=== PATIENT | male | born 1965 | race Caucasian/White ===

== ENCOUNTER 2016-12-02 14:15 | Inpatient (IN) | payer OTHER ==
[~2016-12-02] VITALS: Ht 162.6 cm; Wt 83.9 kg
[2016-12-02] VITALS (13 sets, daily range): BP systolic 117–174; BP diastolic 61–116; PULSE 82–99; RESP 20–27; O2SAT 96–97
[~2016-12-02 14:15] MED LIST: 0.9% Sodium Chloride 1,000 ML ONE; 0.9% Sodium Chloride 250 ML ONE; ASPI81TA3 PO; ATOR80TA77 PO; DOCU-41 PO; FEG324 PO; Heparin 1,000 Unit/mL 10 mL Inj ONE; Heparin 1,000 Units/500 mL NS Premix IV ONE; Heparin 10,000 Unit/1,000 mL NS Premix IV ONE; Heparin 5,000 Units/500 mL NS Premix IV ONE; LISI-571 PO; METO-272 PO; NitroPRUSSIDE 25,000 mCg/mL 2 mL Inj IV ONE; Nitroglycerin 50,000 mcg/250 mL D5W Premix IV ONE; OMEP20CA11 PO
[2016-12-02] MEDS ORDERED: Atropine 1 mg/10 mL (Code) Syringe ONE (14:16)
[2016-12-02] MEDS ORDERED: fentaNYL-PF 50 mCg/mL 2 mL Inj ONE (14:36)
[2016-12-02 14:40] LABS: BASOPHILS % (AUTO) 0.3 % (0-3); EOSINOPHILS % (AUTO) 0.8 % (0-5); MONOCYTES % (AUTO) 7.2 % (4-12); Mean Corpuscular Hemoglobin 28.8 pg (27.0-35.0); NEUTROPHILS % (AUTO) 77.6 % (40-74); Platelet Count 282 bil/L (150-400)
[2016-12-02] MEDS ORDERED: Phenylephrine/NS-PF 100 mCg/mL 5 mL Syringe IVPUSH ONE (14:40)
[2016-12-02 15:17] LABS: Magnesium 1.8 mg/dL (1.6-2.6)
[2016-12-02 15:18] LABS: TROPONIN T < 0.010 ug/L (0.0-0.011)
[2016-12-02] MEDS ORDERED: Nitroglycerin 50,000 mcg/250 mL D5W Premix IV ONE (15:30)
[2016-12-02 15:48] LABS: Creatine Kinase 138 U/L (21-232)
[2016-12-02] MEDS ORDERED: LANS30CA PO (17:52)
[2016-12-02] MEDS ORDERED: HYDR28GE EXT (18:20)
--- NOTE | 2016-12-02 18:24 | NUR ---
Admit nurse note Admission assessment completed. Pt. denies needs at this time aside from hunger. Dinner is ordered. Brother is at bedside and engraver signature in to talk with pt. during my assessment. NKA verified. Med history obtained from medication bottles, which are sent home with brother. He gives history of falls related to CVA and resulting weakness.Pt. oriented to room and call almeida. Report given to Bijal Mendoza.
[2016-12-02] MEDS ORDERED: Nitroglycerin 50 mg/250 mL D5W Premix IV PRN (18:35)
--- NOTE | 2016-12-02 18:55 | NUR ---
Post cath.. Pt received from nitriles lab technician at 1630. Arrived in stable condition and no chest pain or SOB noted. B/P was 150 systolic. NTG resumed from nitriles lab technician and B/P has come down to wnl. Groin site has old blood under drsg but no hematoma noted. Dr Weber here to assess pt.
--- NOTE | 2016-12-02 19:08 | CS94 ---
[address] [address] DIAGNOSTIC CARDIAC CATHETERIZATION PATIENT: GUY CORNEJO : 1965 MR#: [id number] ADMIT: 12/02/2016 JOB ID: [id number] PROCEDURE NOTE -- CARDIAC CATHETERIZATION LABORATORY: SERVICE DATE: November SERGEANT MISSILE CREWMAN: Srinivasan Weber MD PROCEDURES: 1. Coronary angiogram -- emergent. 2. Percutaneous coronary intervention (PCI): a. Distal RCA -- Resolute KAIN 2.5 x 18 mm (occlusion; InStent thrombosis). b. Thrombectomy -- adjunctive thrombectomy. 3. Left heart catheterization (LHC -- pressure measurements LVED; and pullback. CLINICAL DETAILS: This 51-year-old man presented to the emergency department by EMS after about an hour's time in transport from home after he developed severe -- intensity 7 on a scale of 10 -- chest pressure with diaphoresis and mild dyspnea and nausea. The pain was not relieved by morphine. He was hypertensive with systolic blood pressure 188. He has a history of known coronary disease with PCI at [facility] in September 2015. His wallet card indicates stents in the right posterolateral branch, Xience Alpine 2.25 x 23 mm; then Xience Alpine KAIN in distal RCA 2.5 x 33 mm; and Xience Alpine KAIN 2.5 x 23 mm in proximal OM. Plavix was discontinued about a month ago. ECG shows sinus rhythm with marked [address] elevation inferiorly and in the lateral precordial leads as well as confirmatory reciprocal ST depression in lead L1 and aVL; and ST depression in lead V1, V2 with sinus rhythm. PROCEDURAL DETAILS: I met him and evaluated him on arrival in the emergency department. We discussed the recommendation to proceed emergently to coronary angiogram and anticipated PCI for STEMI. We discussed the procedure including possible risks and complications. We discussed bleeding, infection, blood clots; as well as injury to nerve, artery, vein or kidney; and also arrhythmia, drug reaction or others. We discussed treatment as needed including pacemaker, transfusion or surgery. We discussed more serious complications that are possible including heart attack, stroke, cardiac arrest, and emergent surgery including transfer for coronary bypass if needed. After questions and discussions, he signed informed consent to proceed. He was n.p.o. He was brought to the catheterization laboratory where he was prepped and draped sterilely. CORONARY ANGIOGRAM: Arterial access was obtained without difficulty in the right common femoral artery using modified Seldinger technique and fluoroscopic localization over the femoral head to insert a 10 cm 6-Grenadian side-arm sheath in the right common femoral artery. Catheters were advanced and exchanged over a long 0.035 inch J-tipped guidewire. First the left coronary artery was imaged with a 6-Grenadian JL-4 diagnostic catheter. Then, the right coronary artery was engaged with a 6-Grenadian JR-4 guide catheter. LHC: At the end of the procedure, a 6-Grenadian pigtail catheter was advanced across the aortic valve into the left ventricle to measure LVED and pullback. No LV cine don PCI of distal RCA and culprit in-stent thrombosis of the distal RCA: The diagnostic images were reviewed. Decision was made to proceed with emergent intervention of the culprit occlusion in the proximal part of the prior stent in the RCA just after the acute margin. Prior to the procedure, the patient received aspirin 324 mg p.o.; as well as heparin bolus 5000 units; and heparin IV infusion 1000 units/hour; and also Plavix loading dose 300 mg p.o. in the ambulance. For this procedure, he received additional loading dose of Plavix 300 mg p.o. for total loading dose of Plavix 600 mg p.o. Procedural anticoagulation was obtained with bolus IV heparin 8000 units to achieve therapeutic ACT. Aliquots of NTG IC were used during the procedure. Nitroprusside 150 mcg IC was used during the procedure. NTG IV was also used to control his hypertension. The 6-Grenadian JR-[address] was used for the intervention. The occlusion was crossed without difficulty with a BMW wire -- 0.014 inches x 190 cm -- which was placed distally in the RPLB. CARDIAC PREDILATATION: The artery was opened with one inflation of a Trek balloon -- 2.5 x 20 mm -- inflated to 6 atmospheres. The artery was then opened and the initial MISTY 0 flow returned to MISTY-3. Estimated door to balloon time was 48 minutes. STENT: Thrombectomy: In the proximal part of the prior RCA stent, there is a filling defect consistent with thrombus. Initially, there was a cutoff in the small distal portion of RPLB that may represent downstream embolization. The in-stent thrombus was treated with one pass and two aspirations of an Expressway thrombectomy catheter. There was at least one moderate-size piece of red thrombus retrieved. The in-stent filling defect did remain. STENT: The lesion was stented with a Resolute KAIN (drug-eluting stent) -- 2.5 x 18 mm -- deployed in the proximal portion of the previously stented segment. POSTDILATATION: The stent at the site of the thrombus was post dilated with a noncompliant Trek NC balloon -- 2.75 x 12 mm -- deployed at 20 atmospheres. The completion angiogram showed an excellent final angiographic result with MISTY-3 flow resumed; no residual lesion; and no angiographic complication. Flow in the distal RPLB resumed consistent with resolution of the prior cutoff/thrombotic embolus. Procedure without difficulty. The patient tolerated procedure well. No complication. A side-arm sheath angiogram shows adequate access in the right common femoral artery for a closure device. Arterial hemostasis was obtained without difficulty using a 6-Grenadian Perclose suture. After the procedure, there was slow resolution of his chest discomfort and ST elevation. He was transferred ultimately from the Catheterization Laboratory chest-pain free and with much reduced ST-elevation to the CCU for ongoing care. I discussed the procedure findings and recommendations with the patient; with the Cardiology. FINDINGS: 1. LMCA: Intact. The left main coronary artery is short and there is pressure damping on engaging the ostium but there is no lesion. 2. LAD: Intact. The left anterior descending coronary artery is a moderate-sized vessel which appears to taper prior to the apex; but there is no discrete lesion seen. The vessel appears to taper but a distal occlusion in the small portion of the LAD is not excluded. There is one moderate-sized early diagonal. There is moderate atherosclerotic plaquing including 50% to 60% narrowing in the early mid LAD just after the small first septal pony edger. 3. CARDIAC LCX: Intact. The left circumflex coronary artery is a large vessel with a very large high first OM. The prior stent is faintly seen in the proximal part of the large first OM. It is intact. 4. RCA: Occluded distally in the proximal part of the prior stent just after RV branch and just after acute margin. The RCA is dominant. PDA is small. PLB is moderate-sized. Both moderate-sized PDA and PLB reach the apex consistent with the small territory of the LAD. At the end of the procedure, there is a visible myocardial blush. 5. LHC: LVED 34; and no systolic gradient on pullback across the aortic valve despite report of moderate aortic stenosis on prior echo. CONCLUSIONS: 1. PCI -- Resolute KAIN 2.5 x 15 mm; post dilated to 2.75 mm. 2. ACS (acute coronary syndrome) -- STEMI; acute inferior myocardial infarction (infarct related artery is RCA). 3. CAD (coronary artery disease) -- two-vessel CAD including in-stent occlusion of the previously revascularized distal RCA; and intact prior stent and a large OM-1. 4. Severe hypertension; and markedly elevated LVED. RECOMMENDATIONS: 1. ECASA -- indefinitely. 2. Plavix -- plan one year if well tolerated including ongoing Cardiology followup. I discussed with the patient the critical importance of mandatory Plavix, and not to stop for any reason without immediate Cardiology consultation. He had already been started on Plavix in the field; but may consider prasugrel. Also to consider lifetime Plavix if well tolerated. ECHO Monitor for heart failure. OMT -- guideline directed optimal medical therapy for coronary disease and risk factors including aspirin, Plavix, high-intensity statin, beta-marizol and SARAH inhibitor.
--- NOTE | 2016-12-02 19:17 | HP ---
[address] [address] HISTORY AND PHYSICAL PATIENT: GUY CORNEJO : 1965 MR#: [id number] ADMIT: 12/02/2016 JOB ID: [id number] CARDIOLOGY ADMISSION HISTORY AND PHYSICAL: INITIAL CRITICAL CARE EVALUATION (EMERGENCY DEPARTMENT): DATE OF EVALUATION: , December 02, 2016. ADMITTING PHYSICIAN: Cardiology-Srinivasan Weber MD. PROBLEMS: 1. Acute coronary syndrome. (ACS): a. Chest pain--severe unrelieved chest pressure; ischemic time probably 1-2 hours. 2. STEMI--acute inferior myocardial infarction. 3. Coronary artery disease (CAD): a. PCI--September 2015 at [facility] in [place], [place]; Xience Alpine KAIN (drug-eluting stent) 2.5 x 33 mm in distal RCA; and Xience Alpine KAIN 2.25 x 23 mm in RPLB; and Xience Alpine KAIN 2.5 x 23 mm in proximal OM-1. b. Echocardiogram--July 23, 2016 shows ejection fraction 65% to 70% with no wall motion abnormalities; and "moderate" aortic stenosis with a peak AVG 2.74 (mean AVG 16 and SHELIA 1.2). CORONARY ARTERY DISEASE RISK FACTORS: 1. No history of diabetes. 2. History of hypertension--history of severe hypertension. 3. Hyperlipidemia--status unknown but on chronic statin. 4. Cigarettes--cigarette smoker; discontinued in 2013 after CVA. FAMILY HISTORY: Family history of premature coronary disease (his father had onset coronary disease in his 4th decade but lived to the 8th decade). 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 CHIEF COMPLAINT: 1. Chest pain. 2. Abnormal ECG-inferior STEMI. HISTORY OF PRESENT ILLNESS: ED presentation: I was called by the emergency department physician for "industrial laborer activation" and was present when this 51-year-old man presented to the emergency department by EMS transport from his home after about 1 hour of transport with ischemic time probably 1-2 hours. He had ongoing severe--intensity 01/31--retrosternal chest heaviness that radiated "all over" and associated with intense diaphoresis initially and some subjective dyspnea. He has otherwise been well after his stent procedure in September 2015. He has been followed in Cardiology Clinic including by Dr. Iverson and has had no other symptoms or cardiac procedures. In the ambulance, he received ASA 324 mg p.o.; as well as heparin loading bolus 5000 units; a heparin IV infusion at 1000 units/hour. He also received a loading dose of 300 mg Plavix p.o. He was hypertensive with initial systolic blood pressure 188/100-110 diastolic. On arrival, he had ongoing severe chest pain and hypertension but was otherwise stable with sinus rhythm. ECG showed overt marked inferior ST elevation of 5-[address] elevation greater in lead. CARDIAC HISTORY: He had one prior cardiac event in September 2015, the details of which are not initially known. He had two-vessel PCI, as noted above. He stopped Plavix about a month ago. Otherwise, he does not have other cardiac symptoms including symptoms of heart failure such as chronic exertional dyspnea or nocturnal dyspnea or edema. He has no history of arrhythmia or current symptoms of arrhythmia, including tachy palpitation, presyncope or syncope. Regarding other underlying vascular disease, he has no claudication; and no current symptoms of TIA; but he does have history of CVA with left hemiparesis in 2013. Regarding possible dual antiplatelet therapy, he has no current bleeding symptoms, no anticipated surgery, and he states reliable to take mandatory medicines if needed. ALLERGIES: No known drug allergies. I elicit no history of allergy to medical contrast; or to seafood, fish, iodine or shellfish. MEDICATIONS: His initial medicines are not clear, but he brings a bag with multiple medication bottles includin. Aspirin. 2. Lipitor. 3. Lisinopril. 4. Metoprolol. PAST MEDICAL HISTORY: As above; but otherwise he is generally healthy without other major underlying medical illnesses noted. REVIEW OF SYSTEMS: I questioned him in the emergent setting regarding a 13 point review of systems which is unremarkable, noncontributory or negative except as noted including: No history of thyroid disorder. No history of lung disorder including asthma, wheezing or known COPD. History of indigestion; but otherwise no history of underlying GI disorder including ulcer, hepatitis or jaundice. PERSONAL/SOCIAL HISTORY: Cigarettes--he stopped in 2013 after CVA. Alcohol--he drinks no alcohol. Work--he works with [employer]. Family--he has a brother locally; lives alone. No other drug use. FAMILY HISTORY: Strong family history of premature coronary artery disease in his father, as noted. PHYSICAL EXAMINATION: GENERAL APPEARANCE: Middle-aged man who is moderately uncomfortable with acute chest pain. He is not overtly dyspneic lying flat. VITAL SIGNS: Blood pressure initially 188/110 with a heart rate regular and sinus rhythm on telemetry. Respiratory rate 20 and without apparent dyspnea. SpO2 96% on supplemental oxygen nasal cannula. The weight is 180 pounds. NEUROLOGIC: Mental status: Very brief examination reveals no acute overt focal neurologic defects noted. He is alert, oriented, appropriate and conversant. HEENT: PERRL, conjunctivae pink. Sclerae not icteric. Mouth and mucous membranes intact with Mallampati 4. NECK: Carotid upstroke difficult to feel, but unremarkable without bruit bilaterally. Jugular venous pressure unremarkable examined supine. No palpable thyromegaly. No palpable cervical lymphadenopathy. LUNGS: Diffusely diminished breath sounds bilaterally. Examined supine; but otherwise unremarkable clear to auscultation bilaterally. CARDIAC: No chest wall tenderness. Cardiac examination notable for regular rhythm, S4, and no loud murmur heard. ABDOMEN: Obese but otherwise unremarkable without tenderness, mass, hepatosplenomegaly, bruit of abdominal aortic aneurysm. EXTREMITIES: No edema. Pedal pulses intact bilaterally including at the right dorsalis pedis and posterior tibial. DIAGNOSTIC STUDIES: ELECTROCARDIOGRAM: I reviewed the multiple prehospital ECGs and the ECG initially in the ED, all of which show sinus rhythm with marked inferior ST elevation with more ST elevation in lead III than lead II as well as lateral precordial ST elevations, and right precordial ST depression. The overall impression is RCA occlusion more likely than LCX occlusion. CHEST X-RAY: Chest x-ray deferred on presentation. I reviewed a prior chest x-ray from an emergency department visit in June 2016 which showed cardiomegaly and some heart failure. LABORATORY: Laboratory initially not available. When available labs include: CBC includes WBC 17,300 with hemoglobin 15.2, hematocrit 43.3, and platelet count 262,000. Chemistry includes potassium 3.7, creatinine 1.08, estimated GFR 77, glucose 104, and magnesium 1.8. LFTs unremarkable. Initial cardiac markers include CK total 138, CK-MB 3.9, with troponin not elevated at less than 0.01. ASSESSMENT: I discussed my findings, impressions and management considerations with the patient and with the ED staff and with Cardiology includin. Acute coronary syndrome with inferior ST elevation myocardial infarction: He presents with ongoing ischemic chest pain and marked ST elevation on ECG in the setting of severe hypertension but otherwise clinically stable. His prior cardiac history is not entirely available but includes a single prior cardiac event in September 2015 with two-vessel PCI of obtuse marginal and right coronary artery. I discussed with him the recommendation to proceed emergently to coronary angiogram and anticipated PCI to define coronary artery and guide management options including medical therapy, anticipated PCI or coronary bypass surgery if needed. 2. Hypertension: He has a history suggestive of severe hypertension; and this may be driving his pain; or may be secondary to hypertension. PLAN: 1. Coronary angiogram--emergent. 2. Echocardiogram. 3. Admit to CCU. 4. Chest x-ray. 5. OMT-optimal guideline-directed medical therapy for coronary disease and underlying risk factors.
--- NOTE | 2016-12-02 19:39 | DRSVH ---
PROCEDURE: X-RAY CHEST ONE VIEW, PORTABLE ([id number]) INDICATIONS: 51 year-old male with chest pain. TECHNIQUE: One view of the chest was acquired. COMPARISON: [facility], CR, XR CHEST 1VW (PORTABLE), 07/20/2016, 1:27. FINDINGS: Surgical changes and devices: None. Lungs and pleura: No pleural effusions or pneumothorax. Lungs are clear. Mediastinum: Mediastinal contours appear normal. Heart size is normal. Bones and chest wall: No suspicious bony lesions. Overlying soft tissues appear unremarkable. IMPRESSION: No acute cardiopulmonary disease. Dictated by: Jose Peterson M.D. on 12/02/2016 at 19:37 Approved by: Jose Peterson M.D. on 12/02/2016 at 19:37
[2016-12-02] MEDS ORDERED: 0.9% Sodium Chloride 250 ML IV PRN (20:02)
[2016-12-02] MEDS ORDERED: 0.9% Sodium Chloride 1,000 ML IV PRN ×2 (20:02→22:25)
[2016-12-02] MEDS ORDERED: Atropine 1 mg/10 mL (Code) Syringe IVPUSH PRN ×2 (20:05→21:15)
[2016-12-02] MEDS ORDERED: Ondansetron 2 mg/mL 2 mL Inj IVPUSH PRN ×2 (20:05→21:15)
[2016-12-02] MEDS ORDERED: MeTOProlol XL 25 mg ER24 Tablet PO SCH (21:00)
[2016-12-02] MEDS ORDERED: 0.9% Sodium Chloride 400 ML (4 HRS) IV ONE (21:15)
[2016-12-02] MEDS ORDERED: Sodium Chloride LOK Flush 10 mL Syringe IVFLUSH PRN (21:15)
[2016-12-02] MEDS ORDERED: 0.9% Sodium Chloride 250 ML BOLUS IV PRN (21:15)
[2016-12-03] VITALS (11 sets, daily range): BP systolic 107–146; BP diastolic 66–99; PULSE 69–102; RESP 14–24; O2SAT 93–97
[2016-12-03 03:30] LABS: Mean Corpuscular Hemoglobin 28.6 pg (27.0-35.0)
[2016-12-03 04:36] LABS: TROPONIN T 12.54 ug/L (0.0-0.011)
--- NOTE | 2016-12-03 04:49 | NUR ---
P: keep SBP < 140 I: nitroglycerine drip, HS toprol E: Nitroglycerine drip from off to 15mcg to keep SBP < 140. Current rate at 10mcg. SBP teens to 160, DBP 60-90s. Tele SR/ST w/ runs of VT. Decrease runs of VT in AM hours. R groin tender, soft w/ bruising and swelling. R DP intact. A/O. c/o nausea after eating dinner w/ cucumbers ("cucumbers and crab cause me nausea"). Zofran given, effective. c/o mid chest "soreness", 11/01. "It is my stents". Tylenol given, effective. Voiding patrick urine via urinal. Resting quietly in AM hours. Dr Weber present on floor approx 2300 and updated on runs of VT and SBP > 140.
--- NOTE | 2016-12-03 10:44 | DRSVH ---
[facility] [address] [place] [address] Echocardiogram Report Name: GUY CORNEJO Javier e: 12/03/2016 Height: 64 in Hospital Exam Location: [facility] Weight: 182 lb Gender: Male BSA: 1.9 m2 : 1965 Age: 51 yrs BP: 132/82 mmHg Reason For Study: CORONARY THROMBECTOMY, STENT Ordering Physician: Performed By: Ashlyn Carlos Referring Physician: Marjan Iverson Interpretation Summary Left ventricular wall thickness is at the upper limits of normal. There is inferior wall akinesis. There is posterolateral wall hypokinesis. Left ventricular ejection fraction is estimated to be 45 +/- 5%. The aortic valve is mildly calcified. The calculated aortic valve area is 1.3 cm2. The right ventricular systolic pressure is estimated at 30 mmHg assuming a right atrial pressure of 3 mm Hg. Compared to the prior echo study, there has been no change in the severity of aortic stenosis. Procedure: A two-dimensional transthoracic echocardiogram with color flow and Doppler was performed. The apical views were difficult to obtain and are suboptimal in quality. A contrast injection of Definity was performed to improve assessment of LV function. Contrast was injected into an intravenous site in the left arm. A total of 6 cc of contrast was given. Comparison is made with the echocardiogram of 07-23-2016. The patient was in sinus during the exam. The patient did well with the Definity Contrast. Left Ventricle: The left ventricle is normal in size. Left ventricular wall thickness is at the upper limits of normal. The LVOT diameter is 2.0 cm. Left ventricular ejection fraction is estimated to be 45 +/- 5%. There is inferior wall akinesis. There is posterolateral wall hypokinesis. Spectral Doppler of the mitral valve shows a normal E/A wave ratio. Right Ventricle: The right ventricle grossly appears normal in size with probable normal systolic function. Atria: Both atria are normal in size. There is no Doppler evidence for an atrial septal defect. Mitral Valve: The mitral valve leaflets appear normal. There is no evidence of stenosis, fluttering, or prolapse. There is mild mitral annular calcification. There is trace mitral regurgitation. Aortic Valve: The aortic valve is not well visualized. The aortic valve is mildly calcified. The calculated aortic valve area is 1.3 cm2. The peak aortic velocity is 2.9 m/sec. The aortic valve mean gradient is 18 mmHg. The peak aortic velocity on the previous exam was 2.7 m/sec. Compared to the prior echo study, there has been no change in the severity of aortic stenosis. There is trace aortic regurgitation. Tricuspid Valve: The tricuspid valve leaflets are thin and pliable. There is mild tricuspid regurgitation. The right ventricular systolic pressure is estimated at 30 mmHg assuming a right atrial pressure of 3 mm Hg. Pulmonic Valve: The pulmonic valve is not well seen, but is grossly normal. There is no pulmonic valvular regurgitation. Great Vessels: The aortic root is normal size. The dimensions of the ascending aorta are normal. The pulmonary artery is normal size. The IVC is of normal diameter and collapses greater than 50% with a sniff. This suggests a low right atrial pressure of 3 mm Hg. Pericardium/ Pleura There is no pericardial effusion. There is no pleural effusion. MMode/2D Measurements & Calculations LVIDd: 4.6 cm LA dimension: 4.1 cm RA long axis: 4.3 cm LVOT diam LVIDs: 3.4 cm FS: 27.3 % LA A2 area: 18.2 cm RA area: 13.2 cm AoV Opening EPSS: 0.45 cm LA A4 area: 21.9 cm RA vol: 34.3 ml IVSd: 1.0 cm LA length (vol): 5.4 cm RA : 18.3 ml/m2 Ao root diam LVPWd: 1.1 cm LA vol: 63.1 ml asc Aorta Diam LA vol index: 33.6 ml/m2 EDV(MOD-sp2) LV reddy. diameter/BSA LV sys. diameter/BSA (cm/m^2): 2.5 (cm/m^2): 1.8 ESV(MOD-sp2) EF(MOD-sp2) Doppler Measurements & Calculations Ao V2 max MV E max efrain MV E/A: 1.1 TR max efrain : 291.6 cm/sec : 80.4 cm/sec Med Peak E' Efrain : 257.9 cm/sec Ao max PG MV A max efrain TR max PG : 34.0 mmHg : 71.7 cm/sec E/E' med: 14.2 : 26.6 mmHg Ao mean PG MV P1/2t: 45.0 msec Lat Peak E' Efrain PA V2 max : 17.5 mmHg : 113.6 cm/sec LVOT Max Efrain E/E' lat: 10.2 PA mean PG : 116.2 cm/sec E/e' average: 12.2 Pulm A Revs Dur PA Accel Time SHELIA(I,D): 1.3 cm : 0.11 sec sev ratio MV A dur: 0.11 sec MV dec time MV P1/2t max efrain Ao V2 mean LV V1 max PG : 0.15 sec : 197.3 cm/sec MVA(P1/2t): 4.9 cm2 Ao V2 VTI: 54.7 cm LV V1 VTI SHELIA(V,D): 1.2 cm2 : 22.7 cm PA V2 mean SHELIA indexed to BSA Pulm A Revs Dur - MV : 80.1 cm/sec (cm^2/m^2): 0.68 A Dur: 0.00 msec Electronically signed by: Jesus M.D. [place] on Reading Physician:12/03/2016 10:43 AM
--- NOTE | 2016-12-03 13:31 | NUR ---
spiritual care: pt request pt reflected on recent medical events including past heart attack and stroke. Pt and brother at bedside reflected on family, of sister and brother in law, parents and family's coping with sudden or unexpected deaths. pt described gratefulness, attention to each moment and being glad for small things as his coping as well as his brother's emotional support. Pt calm, smiled often, used positive framing of the care he's received in his reflections.
--- NOTE | 2016-12-03 14:12 | PROG NOTE ---
[address] [address] PROGRESS NOTE PATIENT: GUY CORNEJO : 1965 MR#: [id number] ADMIT: 12/02/2016 JOB ID: [id number] CARDIOLOGY PROGRESS NOTE--FOLLOW UP INPATIENT EVALUATION: DATE: Saturday, December 03, 2016 PHYSICIAN: Cardiology--Srinivasan Weber M.D. PROBLEMS: 1. Acute coronary syndrome: a. STEMI--acute inferior myocardial infarction. b. PCI--KAIN of in-stent occlusion of the mid RCA stent. c. CAD--two vessel including RCA and also prior stent in the OM-1. 2. Hypertension. HOSPITAL DAY-TWO: I saw the patient and his brother who was in the room on Cardiology rounds today, Saturday, December 03, 2016 in the CCU. He was admitted emergently yesterday with chest pain and inferior ST elevation on ECG. He had emergent catheterization and revascularization of culprit occlusion of in-stent stenosis in the previously stented segment of the mid right coronary artery; and a prior stent in OM1 was intact. Since the catheterization procedure, he has been stable improved and doing well. He has had no chest discomfort; good urine output; and no shortness of breath despite my impression of some pulmonary venous engorgement on the chest x-ray. He has continued to have labile blood pressure sometimes hypertensive and still on 20 mcg NTG IV. He has not been out of bed yet. He has a headache from the NTG. His leg was intact yesterday evening but now has some modest ecchymosis. Overall he is doing very well. MEDICATIONS: His home medications became clarified yesterday evening includin. ASA 81 mg daily. 2. Lipitor 80 mg daily--no myalgias. 3. Docusate 300 mg daily. 4. Ferrous gluconate 324 mg daily--she reports "anemia" but not sure of the site. 5. Lansoprazole 15 mg daily. 6. Lisinopril 5 mg b.i.d.--recently increased to b.i.d. to control his blood pressure. 7. Metoprolol succinate ER 50 mg q.h.s. OBJECTIVE: EXAMINATION: General appearance: He is in good spirits and doing very well and has had no further chest discomfort. Vital signs: Systolic blood pressures have ranged 125-160 on the NTG IV. Telemetry has showed a handful of runs of nonsustained VT including up to 13-20 beat runs asymptomatic. Heart and lungs: Intact. Extremities: The calf site has modest ecchymosis without hematoma, pulsatile mass or bruit and vigorous pulses and perfusion in the right foot. DIAGNOSTIC STUDIES: ECG: The ECG after the cath and again this morning shows resolution of the acute ST elevation and reciprocal ST depression. There was a subtle inferior coving that remains. There are now inferior Q-waves (previously only modest Q-waves are present noting his history of prior inferior VT in September 2015 in [place]). CHEST X-RAY: After the procedure yesterday he had a chest x-ray that was unchanged from previously but shows some cardiomegaly and appears to show some pulmonary venous hypertension. LABORATORY: Note today he has had good urine output and creatinine with hydration has fallen to 0.74. Magnesium 1.8, now rechecked 1.9. Potassium 4.3. Cardiac markers are consistent with a moderate-sized infarct noting his ischemic time of about 2 hours when he presented including CK total 2037. ECHOCARDIOGRAM: The report of the echo done today is consistent with moderate size inferior myocardial infarction with ejection fraction now 40%-50% with inferior and inferolateral wall motion defect noted--prior recent echo suggested EF more than 60% with no wall motion defects. The echo continues to show some degree of aortic stenosis even though we measured no aortic valve gradient during the procedure. ASSESSMENT: I discussed the findings, impressions and management considerations with him and his brother; and with Cardiology including: ACS with inferior VT due to mid RCA in-stent thrombosis with occlusion: He has been revascularized and doing well. He has had a modest size inferior infarct. RECOMMENDATIONS/PLAN: 1. Moved to PCU status. 2. Plan to discontinue NTG IV; and adjust for an oral regimen for his hypertension. 3. Re-ambulate with the nurse once off NTG IV. 4. Regarding hypertension: Reinstitute lisinopril 5 mg b.i.d.; and maintain metoprolol succinate 50 mg daily or increase. Also consider Norvasc. 5. Post catheterization planning: We had a long discussion regarding his post catheterization course including not to lift over 10 pounds for a week after the catheterization; and to resume activities according to an activity prescription for moderate common sense symptom limited return to normal activities as tolerated; and PCP followup in a few days to a week; and cardiology office followup within 7-10 days (Dr. Iverson's office has already contacted him); and we rediscussed the critical importance of Plavix. 6. Consider change to Ticagrelor. 7. Continue to monitor telemetry regarding nonsustained V tach which seems consistent with his early post infarct course.
--- NOTE | 2016-12-03 14:51 | NUR ---
Social Work: Screen D: Per EMR review pt is a 51 year old male admitted for STEMI. Pt is [facility] with no supplement. Pocket Cutter is Cecily Martinez MD. NOK is Joshua Bray, Brother. Advanced directives completed and requested by admit RN. Readmit score is low, 2/8. Pt lives in [place] and is I at baseline. Pt remains in CCU after emergent cardiac cath. Cardiology is leading pt's case. A: Pt who is I at baseline. P: Anticipate pt to discharge home via POV once medically stable; PUBLIC HEALTH STAFF NURSE to continue to follow pt's clinical course and address discharge needs as they emerge. CLARK Ledezma
--- NOTE | 2016-12-03 16:17 | NUR ---
Nitro gtt/mobilization Cardiac: Pt denies CP, Tele: SR 80s, frequent PVCs including runs of no more than 20. Nitro Gtt running most of shift to keep SBP <140, 10mcg/min all night with SPB in 130s, titrated up for increased BP when pt awake. Lisinopril Po given at 13:30, nitro gtt titrated down and DC'd, pt downgraded to PCC. Pt tolerated lisinopril well, Metoprolol XL HS dose increased from 25 to 50. Pt placed on portable tele box, up in chair for meals and ambulating in room with plan to ambulate in [place] before end of shift. Resp: Pt denies SOB, SPO2 96% on RA. GI/: Pt denies n/v/d. Neuro: A&Ox3, L hand and L foot numb s/p past CVA december 2013, uses cane and FWW
[2016-12-03] MEDS ORDERED: Diltiazem 125 mg/125 mL D5W IV SCH ×2 (19:20)
[2016-12-03] MEDS: MeTOProlol XL 50 mg ER24 Tablet PO SCH (21:41)
[2016-12-04] VITALS (8 sets, daily range): BP systolic 90–119; BP diastolic 58–75; PULSE 72–98; RESP 16–21; O2SAT 94–99
--- NOTE | 2016-12-04 01:35 | NUR ---
Transfer PCC pt from room 2013 to 2026. Report given to Anahy REILLY. Pt A/O. Start of shift pt in Afib, RVR and order to start diltiazem drip. Pt converting back to SR w/ frequent PACs before diltiazem drip starting. c/o mild dyspnea w/ transfer from chair back to bed when HR in the 140-180s. Otherwise no symptoms. Tele continues in SR w/ less frequent PACS. BP currently stable low after receiving lopressor at the end of day shift and lisinopril given at HS. Denies pain, N/V, dyspnea. Tolerating diet. Voiding via urinal. R groin site stable.
--- NOTE | 2016-12-04 01:40 | NUR ---
Admission Pt arrived in CCU bed. Transferred from CCU 2013. Pt alert and orientated. Full assessment completed. Voiced no concerns.
--- NOTE | 2016-12-04 05:43 | PCM.CHPMED ---
Subjective Date of Service: December 04, 2016 Provider requesting consult: Srinivasan Weber MD Primary Physician: Admitting Physician: Srinivasan Weber MD Primary Care Physician: Cecily Martinez MD Attending Physician: Srinivasan Weber MD Chief Complaint: Chief Complaint: chest pain History of Present Illness: 51yoM with past medical history of HTN, HLD, CAD s/p stent placement admitted with STEMI s/p cath. Request by Dr. Weber of cardiology for evaluation and management of atrial fibrillation with RVR. Patient was at home prior to admission when he began having 7/10 chest discomfort characterized as heaviness that was diffuse radiating throughout the chest associated with diaphoresis and dyspnea. EMS was called and patient transported to [facility] ED where terrazzo laborer activation was completed. EKG with inferior ST elevation. In terrazzo laborer prior stent was found to have in stent thrombosis of the RCA. This was revascularized and patient was transferred to the CCU for close monitoring. The evening of 12/03 at approximately 7pm Mr. Bray went into atrial fibrillation with RVR. He has been recently taken off a nitro gtt which was managing HTN. His evening dose of metoprolol was given and he spontaneously converted to sinus rhythm. Review of Systems: complete review of systems obtained. positive as per hpi otherwise negative PMH Past Medical History Acute coronary syndrome. (ACS)STEMI--acute inferior myocardial infarction. CAD, PCI Prov aroldo 2015 HTN HLD Past tobacco dependence CVA, residual left hemiparesis Bedside Blood Glucose: 134 Home Medications Current inpatient medications NS prn hypotension Nitro gtt on sep Acetaminophen ASA Atorvastatin Plavix Lisinopril Metoprolol Morphine Nitro SL Ondansetron Allergies: Coded Allergies: crab (Verified Adverse Reaction, Intermediate, N/V, 12/02/16) cucumber (Verified Adverse Reaction, Intermediate, N/V, 12/02/16) Family History Family History Family history of premature coronary disease (his father had onset coronary disease in his 4th decade but lived to the 8th decade). Social History Hx Alcohol Use: NoHx Substance Use: No Smoking Status: Former Smoker Exam Vital Signs Vital Sign - Last Date Time Temp Pulse Resp B/P Pulse Ox O2 Delivery O2 Flow Rate FiO2 12/04/16 03:10 37.4 88 20 110/62 95 Room Air 12/02/16 14:16 2 Intake and Output 12/03/16 12/03/16 12/04/16 Cumulative From/Thru 15:00 23:00 07:00 12/02/16 14:16 - 12/04/16 03:10 Intake Total 1750 ml 2873 ml Output Total 875 ml Balance 1750 ml 1998 ml Intake Oral 1600 ml 2200 ml IV Total 150 ml 673 ml Output Urine Total 875 ml # Voids 4 4 # Bowel Movements 1 0 1 Additional Information: General: Alert, Oriented X3, Cooperative, No acute Distress. Eyes: PERRLA, Scleral Anicteric Mouth: Mouth Normal, Mucous Membranes Moist/[place] Neck: Supple, no Thyromegaly, trachea central. Chest & Lungs: CTA bilateral with no rhonchi wheezes or rales Cardiovascular: Normal S1, Normal S2, No Murmurs/Rubs/Gallops, Regular Rate/ Rhythm, (no JVD, no peripheral edema) Pulses: Radial (present and equal), Dorsalis Pedi (present and equal) Abdomen: Soft, non-tender, obese, Normoactive bowel tones. Musculoskeletal: Unremarkable. Normal range of motion, no swollen or erythematous joints Extremities: No edema, no cyanosis, no clubbing. Skin: No rashes. Warm and dry, no erythematous areas Neurological: Grossly neurologically intact, Normal Speech, Sensation Intact Lymphatic: Lymph nodes Cervical and Axillary not palpable. Lab and Diagnostics Result Diagram: 12/03/1631412/03/16314 Assessment & Plan Assessment 51yoM with past medical history of HTN, HLD, CAD s/p stent placement admitted with STEMI s/p cath. Atrial fibrillation with RVR, acute, not POA -patient when into afib with RVR following cath but spontaneously converted to sinus with metoprolol -if converts back into atrial fibrillation with RVR and BP is stable consideration will be given to starting dilt bolus and gtt -continue metoprolol as per cardiology STEMI, acute, POA -s/p cath with in stent thrombosis found -management as per cardiology HTN, chronic, POA - management as per cardiology HLD, chronic, POA - continue statin Problems: Pain Evaluation: Adequate Pain Control GI Prophylaxis: Not indicated VTE Prophylaxis: Other (as per cardiology) Resuscitation Status: CPR: Attempt Resuscitation Mellissa Joseph DO December 04, 2016 05:43
--- NOTE | 2016-12-04 18:30 | NUR ---
Mobilization/BP Cardiac: Pt denies CP, Tele: SR 80s.Denies CP. BP much lower than previous shift. SBP 100 and 119 this AM. Lisinopril held for a while until SBP rebounded to 121, and after discussion with Dr arnold. SBP back down to 99 at 1600. Pt asymptomatic. Resp: Pt denies SOB, SPO2 99% on RA. GI/: Pt denies n/v/d. Neuro: A&Ox3, L hand and L foot numb s/p past CVA december 2013, uses cane and FWW. Ambulated with pt in hallway. Pt declined need for FWW and was able to ambulate independently with a steady but slow gait. Pt denied SOB or CP. Pt was instructed that he could walk any time he wanted, but it had to either be with staff or with a walker.
[2016-12-04] MEDS: MeTOProlol XL 50 mg ER24 Tablet PO SCH (20:44)
--- NOTE | 2016-12-04 20:44 | PCM.PNMED ---
Subjective Date of Service December 04, 2016 Subjective 51yoM with past medical history of HTN, HLD, CAD s/p stent placement admitted with STEMI s/p cath. Request by Dr. Weber of cardiology for evaluation and management of other medical problems. Patient was at home prior to admission when he began having 7/10 chest discomfort characterized as heaviness that was diffuse radiating throughout the chest associated with diaphoresis and dyspnea. EMS was called and patient transported to [facility] ED where oil field laborer activation was completed. EKG with inferior ST elevation. In oil field laborer prior stent was found to have in stent thrombosis of the RCA. This was revascularized and patient was transferred to the CCU for close monitoring. The evening of 12/03 at approximately 7pm Mr. Bray went into atrial fibrillation with RVR. Patient was seen and examined. Labs, tests results, home medications, inpatient medications, possible side effects were reviewed in details with the patient. All questions answered. For detailed plan please see consult note dictated by hospitalist today. Also see residential field manager progress note. Today patient feels better. His heart rate is under control. Patient has history of stroke, hypertension. He is on aspirin and Plavix. He is at high risk of another stroke. I discussed with the patient anticoagulation therapy with old and new medications for stroke prevention. He would like to discuss it with his residential field manager first. In the meantime we will continue with aspirin and Plavix. Patient states that he develops bruising very easily when bumps into something or cut himself. Exam Vital Signs Vital Sign - Last Date Time Temp Pulse Resp B/P Pulse Ox O2 Delivery O2 Flow Rate FiO2 12/04/16 15:45 37.1 78 16 98/64 98 Room Air 12/02/16 14:16 2 Intake and Output 12/03/16 12/03/16 12/04/16 Cumulative From/Thru 15:00 23:00 07:00 12/02/16 14:16 - 12/04/16 05:51 Intake Total 1750 ml 300 ml 3173 ml Output Total 725 ml 1600 ml Balance 1750 ml -425 ml 1573 ml Intake Oral 1600 ml 300 ml 2500 ml IV Total 150 ml 673 ml Output Urine Total 725 ml 1600 ml # Voids 4 4 # Bowel Movements 1 0 1 Exam PHYSICAL EXAM: GENERAL: Alert, not in distress, cooperative HEAD: atraumatic, normocephalic, no bruises. EYES: [place], EOMI, anicteric, able to fully open and close eyelids SKIN: Skin color normal, turgor normal. No visible rashes or lesions. EAR, NOSE, MOUTH, THROAT: Lips, oral mucosa, tongue gums, oropharynx are moist , pink, no lesions. Ears normal appearance, no lesions. NECK: no jugulovenous distention, no carotid bruits, carotid pulse normal contour, No carotid bruit, supple, no enlarged lymph nodes appreciated; ROM normal. RESPIRATORY: Lungs clear to auscultation. Good diaphragmatic excursion. Normal percussion sound. CARDIAC: normal S1 and S2; no rubs, murmurs, or gallops; regular rate and rhythm ABDOMEN: Abdomen soft, non-tender. BS normal. No masses or organomegaly. MUSCULOSKELETAL: ROM full, muscles are not tender EXTREMITIES: no pitting edema in LE, no deformities, clubbing or skin discoloration. NEURO: Alert, oriented X 3, Sensation grossly intact., Cranial nerves II-XII intact, motor function R<L PULSES: 2+ radial, 2+ dorsalis pedis, 2+ carotid REVIEW OF SYSTEMS: GENERAL: no malaise, no fevers., SEE HPI HEENT: Negative for frequent or significant headaches, No changes in hearing or vision, no nose bleeds or other nasal problems NECK: Negative for lumps, goiter, pain and significant neck swelling All other reviewed and negative other than HPI. IVs and Medications Medications Reviewed: Medications were reviewed in detail Lab and Diagnostics Result Diagram: 12/03/16 0315 12/04/16 0440 Assessment & Plan GI Prophylaxis: Not indicated VTE Prophylaxis: Other (as per cardiology) Resuscitation Status: CPR: Attempt Resuscitation Guero Machuca MD December 04, 2016 16:55
[2016-12-05] VITALS (10 sets, daily range): BP systolic 86–123; BP diastolic 57–75; PULSE 68–103; RESP 15–18; O2SAT 95–98
--- NOTE | 2016-12-05 01:42 | PROG NOTE ---
[address] [address] PROGRESS NOTE PATIENT: GUY CORNEJO : 1965 MR#: [id number] ADMIT: 12/02/2016 JOB ID: [id number] CARDIOLOGY PROGRESS NOTE-INPATIENT EVALUATION: DATE: 12/04/2016 PHYSICIAN: Cardiology--Srinivasan Weber MD. PROBLEMS: 1. Acute coronary syndrome with acute inferior STEMI; and PCI of mid RCA. 2. Atrial fibrillation--transient, asymptomatic, with spontaneous resolution. HOSPITAL DAY THREE: I saw this 51-year-old man on Cardiology rounds today, Tuesday, December 04, 2016, in his room on the PCU unit. He was admitted now almost two days ago with severe chest discomfort, dramatic inferior ST elevation and occluded RCA which was revascularized. He has done well afterwards, although yesterday afternoon--now almost 24 hours ago--he had an episode of atrial fibrillation with very rapid RVR and heart rates 170 BPM. He was surprisingly completely asymptomatic and unaware of any symptoms or palpitation. The rhythm resolved spontaneously shortly after his evening dose of metoprolol. He is not known to have any other prior atrial fibrillation. Otherwise, he has resumed ambulation which means walking with a cane or front wheel walker because of his prior stroke and left-sided hemiparesis. Overall, he is in good spirits and doing very well. I reviewed his medications with him. OBJECTIVE: Vital signs are stable. Laboratories are intact including creatinine after contrast. I reviewed his ECG during the episode of atrial fibrillation yesterday. There was recurrent ST elevation which we attributed to rate related causes inasmuch as there did not appear to be any ischemia or chest pain present. The ECG today shows substantial resolution of the ST elevation but there is some residual ST elevation and now T-wave inversions inferolaterally consistent with evolutionary changes of his AZ, but also raises the question of developing LV aneurysm. ASSESSMENT: Acute coronary syndrome (ACS) with inferior ST-elevation myocardial infarction (STEMI) and a transient episode of asymptomatic spontaneously resolved atrial fibrillation yesterday: I discussed the findings, impressions and management considerations with him (no family present). He is doing very well and anticipate he will be ready for discharge in the a.m., if he continues stable. PLAN: 1. Anticipate discharge in the a.m. 2. Continue re-ambulation. 3. Continue optimal medical therapy for his CAD. 4. Consider Holter after discharge for surveillance for ongoing atrial fibrillation (so far, the current limited episode seems most consistent as related to his acute AZ). 5. We discussed his prior CVA, and I recommended consideration of specialty Neurology followup including for his anticoagulation regimen; and, in fact, he does see a neurologist, which I supported.
--- NOTE | 2016-12-05 03:51 | NUR ---
Low BP Pt's 0400 BP is at 86/57. As per SEP, pt has NS bolus ordered. NS bolus administered. BP to be rechecked post administration.
--- NOTE | 2016-12-05 14:37 | PCM.PNCARD ---
Subjective Date of service December 05, 2016 Subjective: NO overnight events. He is physically active. He ambulates freely. He denies having chest discomfort, or SHANNON. He does not have symptoms of nocturnal pulmonary congestion; denies palpitations, lightheadedness, presyncope or syncope. Exam Vital Signs Vital Sign - Last Date Time Temp Pulse Resp B/P Pulse Ox O2 Delivery O2 Flow Rate FiO2 12/05/16 09:56 72 12/05/16 08:06 37.0 16 106/68 95 Room Air 12/02/16 14:16 2 Intake and Output 12/04/16 12/04/16 12/05/16 Cumulative From/Thru 15:00 23:00 07:00 12/02/16 14:16 - 12/05/16 06:59 Intake Total 1040 ml 1400 ml 5613 ml Output Total 800 ml 2400 ml Balance 240 ml 1400 ml 3213 ml Intake Oral 1040 ml 1400 ml 4940 ml IV Total 673 ml Output Urine Total 800 ml 2400 ml # Voids 1 4 9 # Bowel Movements 1 Additional Information: General: no ACD EENT: MMM, sclera unicteric Neck: supple, no thyromegaly Pulmo: normal breathing sounds bilaterally, no crackles, no wheezing Cardio: RRR, normal S1 and S2, systolic murmur 2/6 on LUSB Abdomen: nontender with palpation Extremities: no LE edema Neuro: A&Ox3, lefts upper and lower extremities weakness as residual from his previous CVA Lab and Diagnostics Result Diagram: 12/03/16 0315 12/04/16 0440 12-lead ECG On telemetry: sinus rhythm with HR in 60s-70s, no dysrhythmia Assessment & Plan Assessment This is a 51 y/o gentleman with hx/of CAD with NSTEMI and KAIN placements in 2014 (to distal RCA, prox OM1, RPLB), Hypertension, Hyperlipidemia, hx of CVA () with residual left side lateralization who on 12/02/2016 was admitted to [facility] with acute inferior STEMI and had emergent coronary angiography with PCI-- KAIN of in-stent occlusion of the mid RCA stent. # Acute ineferior STEMI s/p PCI--KAIN of in-stent occlusion of the mid RCA stent ; Currently is doing well denies having any chest discomfort or SOB; does not have symptoms of nocturnal pulmonary congestion. On EKG today continues to have ST elevation 1-2 mm in inferior leads with TWIs Right groin area extensive ecchymosis, no bleeding, no hematoma, nontender with palpation, no bruits with auscultation, ambulates freely # Ischemic cardiomyopathy - he is euvolemic on exam, no signs of congestive heart failure; ECHO from 12/03/2016 showed decreased left ventricular function with LV EF 40- 50% with inferior wall akinesis and posterolateral wall hypokinesis; It also was reported that there was no change in the severity of aortic stenosis. Per Dr. Weber, who did coronary angiography, there was no gradient on aorta, and hence the patient does not have . # Paroxysmal Atrial fibrillation - per telemetry on 12/03/2016 had episode of atrial flutter/atrial fibrillation with HR in 140s-150s. He felt palpitations otherwise was asymptomatic. After his po Metoprolol he eventually converted to sinus rhythm. No new episodes of atrial fibrillation/atrial flutter were noted He denies hx of GI bleed in the past. The patients [id number] is 4 for stroke (2), HTN (1), Cardiomyopathy (1). He needs to be anticoagulated. I discussed with the patient in details his stroke risk and what atrial fibrillation/atrial flutter entails. The patient is agreeable to be anticoagulated. - would recommend to start him on warfarin with Lovenox bridge. - because he is on dual platelet therapy (ASA+Plavix), would recommend to continue it for one month, and after one month would recommend to stop ASA and continue warfarin and Plavix. he would need Plavix at least one year because of KAIN placement. # Nonsustained ventricular tachycardia - had several episodes (4 to 8 complexes ) on 12/03/2016; no new episodes noted # Hypertension he actually has been on hypotensive these last couple of days. - will decrease the dose of Lisinopril from 5 mg daily to 2.5 mg daily. # Hyperlipidemia - he is on statin # hx of CVA in 12/2013 - per CT and MRI from that time the patient did not have hemorrhagic stroke; he had thromboembolic event. The case and management was discussed and coordinated with manager route Dr. Weber. Problems: Pain Evaluation: Adequate Pain Control GI Prophylaxis: Not indicated VTE Prophylaxis: Other (as per cardiology) Resuscitation Status: CPR: Attempt Resuscitation Silvestre Hedrick PA-C December 05, 2016 11:50
--- NOTE | 2016-12-05 15:08 | PCM.CONPHA ---
Subjective Date of Service: December 05, 2016 Anticoagulation Reason for Pharmacy Consult: Vancomycin Dosing, Anticoagulation Management Assessment/Plan Assessment/Plan Indication: Afib Home Dose: New start Anticoagulation Trends: Date -November INR 1.0 (12/03) INR change Warf Dose 5mg Currently bridged with therapeutic enoxaparin at 1mg/kg q12h dosing GOAL INR: 2-3 Summary: Patient is a new start and will be given 5mg of warfarin today. Pharmacy will continue to follow daily. Thank you for consulting pharmacy in the care of this patient. Oleg Paz December 05, 2016 15:08
--- NOTE | 2016-12-05 17:48 | PCM.PNMED ---
Subjective Date of Service December 05, 2016 Subjective This is a 51 y/o gentleman with hx/of CAD with NSTEMI and KAIN placements in 2014 (to distal RCA, prox OM1, RPLB), Hypertension, Hyperlipidemia, hx of CVA () with residual left side lateralization who on 12/02/2016 was admitted to [facility] with acute inferior STEMI and had emergent coronary angiography with PCI-- KAIN of in-stent occlusion of the mid RCA stent. The hospitalist service is consulted for assistance in managing the patient's anticoagulation. Hospital day # 2 Overnight: No acute events reported. Today: The patient was noted to have some mild ST elevation on his EKG. The patient states he feels well and denies any chest pain, shortness of breath, palpitations, weakness or fevers. The remainder of ROS is negative except as noted above. Exam Vital Signs Vital Sign - Last Date Time Temp Pulse Resp B/P Pulse Ox O2 Delivery O2 Flow Rate FiO2 12/05/16 16:13 36.9 69 16 115/73 98 Room Air 12/02/16 14:16 2 Intake and Output 12/04/16 12/04/16 12/05/16 Cumulative From/Thru 15:00 23:00 07:00 12/02/16 14:16 - 12/05/16 06:59 Intake Total 1040 ml 1400 ml 5613 ml Output Total 800 ml 2400 ml Balance 240 ml 1400 ml 3213 ml Intake Oral 1040 ml 1400 ml 4940 ml IV Total 673 ml Output Urine Total 800 ml 2400 ml # Voids 1 4 9 # Bowel Movements 1 Exam GENERAL: Alert, not in distress, cooperative HEAD: atraumatic, normocephalic, no bruises. EYES: BRYSON, EOMI, anicteric, able to fully open and close eyelids SKIN: Skin color normal, turgor normal. No visible rashes or lesions. EAR, NOSE, MOUTH, THROAT: Lips, oral mucosa, tongue gums, oropharynx are moist , pink, no lesions. Ears normal appearance, no lesions. NECK: no jugulo venous distention, no carotid bruits, carotid pulse normal contour, No carotid bruit, supple, no enlarged lymph nodes appreciated; ROM normal. RESPIRATORY: Lungs clear to auscultation. Good diaphragmatic excursion. Normal percussion sound. CARDIAC: normal S1 and S2; grade 3 crescendo-decrescendo murmur heard best at the left sternal boarder. ABDOMEN: Abdomen soft, non-tender. BS normal. No masses or organomegaly. MUSCULOSKELETAL: ROM full, muscles are not tender EXTREMITIES: no pitting edema in LE, no deformities, clubbing or skin discoloration. NEURO: Alert, oriented X 3, Sensation grossly intact., Cranial nerves II-XII intact, motor function R<L PULSES: 2+ radial, 2+ dorsalis pedis, 2+ carotid IVs and Medications Medications Reviewed: Medications were reviewed in detail Lab and Diagnostics Result Diagram: 12/03/16 0315 12/04/16 0440 Assessment & Plan This is a 51 y/o gentleman with hx/of CAD with NSTEMI and KAIN placements in 2014 (to distal RCA, prox OM1, RPLB), Hypertension, Hyperlipidemia, hx of CVA () with residual left side lateralization who on 12/02/2016 was admitted to [facility] with acute inferior STEMI and had emergent coronary angiography with PCI-- KAIN of in-stent occlusion of the mid RCA stent. The hospitalist service is consulted for assistance in managing the patient's anticoagulation. Hospital day # 2 Atrial fibrillation with RVR, acute, not POA -stable, controlled -patient when into afib with RVR following cath but spontaneously converted to sinus with metoprolol -if converts back into atrial fibrillation with RVR and BP is stable consideration will be given to starting dilt bolus and gtt -continue metoprolol as per cardiology -[id number] of 4. -Patient agreed to anticoagulation when discussed with cardiology. Started warfarin, dosed by pharmacy, with treatment dose of Lovenox for bridging. -Per cardiology the patient should discontinue ASA once he is on warfarin for one month. STEMI, acute, POA -s/p cath with in-stent occlusion found -patient was noted to have mild ST elevation by the cardiology team. -management as per cardiology HTN, chronic, POA - management as per cardiology HLD, chronic, POA - continue statin Disposition: Per cardiology team. GI Prophylaxis: Not indicated VTE Prophylaxis: Other (as per cardiology) Resuscitation Status: CPR: Attempt Resuscitation Attending Statement Patient was seen and examined by me today. I confirmed pertinent physical exam findings and agree with physical exam as documented. I agree with overall assessment and plan of care as documented. Labs, radiology tests reviewed. Plan of care, medication side effects, home medication, diagnostic procedures and available alternatives were discussed and reviewed with the patient. All questions answered. Patient verbalized understanding, approved and agreed to plan of care. I discussed risk of anticoagulation with the patient - severe bleeding, intracranial bleeding, GI bleeding, possible disability or even as a result of bleeding. Patient verbalized understanding and agreed to proceed with ACT with Warfarin/Lovenox bridge. Arcelia Arambula DO December 05, 2016 17:15 Guero Machuca MD December 05, 2016 19:03
--- NOTE | 2016-12-05 19:03 | NUR ---
Warfarin/Enoxaparin/ambulation/BP Cardiac: Pt denies CP, Tele: SR 70-80. Instructed pt on administering himself a lovenox shot. Pt was able to administer shot successfully and feels confident he can do so at home. Pt was also given warfarin education and printout on vitamin K rich foods. Pt voices understanding. Resp: Pt denies SOB, SPO2 99% on RA. GI/: Pt denies n/v/d. Neuro: A&Ox3, L hand and L foot numb s/p past CVA December 2013, uses cane and FWW. Ambulated with pt in hallway, pt denies dizziness, BP on returnin/83. held lisinopril this AM for BP 106/60s, discussed with PAC and dose cut down to 2.5.
[2016-12-05] MEDS: MeTOProlol XL 50 mg ER24 Tablet PO SCH (20:17)
[2016-12-06] VITALS (8 sets, daily range): BP systolic 100–142; BP diastolic 18–87; PULSE 69–86; RESP 18–20; O2SAT 95–98
[2016-12-06 03:43] LABS: INR 0.96 ratio
--- NOTE | 2016-12-06 06:36 | NUR ---
no pain/sleep pt denies any pain all night, resting comfortably, tele SR 70-80s, BP stable
[2016-12-06] MEDS ORDERED: LOV80 SUBQ (10:14)
--- NOTE | 2016-12-06 12:04 | PCM.DC.MED ---
Discharge Summary Date of Service December 06, 2016 Dates of Hospitalization Date of Hospital Admission December 02, 2016 at 16:54 Date of Discharge: December 06, 2016 Providers: Admitting Physician: Srinivasan Weber MD Primary Care Physician: Cecily Martinez MD Attending Physician: Srinivasan Weber MD Diagnosis at Time of Discharge Diagnosis at Time of Discharge STEMI, CAD, paroxysmal atrial fibrillation, chronic systolic heart failure, hypertension, hyperlipidemia. Procedures XRay, CTs & MRIs CXR IMPRESSION: No acute cardiopulmonary disease. Cardiac Echo Impression Interpretation Summary Left ventricular wall thickness is at the upper limits of normal. There is inferior wall akinesis. There is posterolateral wall hypokinesis. Left ventricular ejection fraction is estimated to be 45 +/- 5%. The aortic valve is mildly calcified. The calculated aortic valve area is 1.3 cm2. The right ventricular systolic pressure is estimated at 30 mmHg assuming a right atrial pressure of 3 mm Hg. Compared to the prior echo study, there has been no change in the severity of aortic stenosis. Hospital Course Patient is 51-year-old male with past medical history hypertension, CVA, hyperlipidemia, coronary artery disease status post PCI in December 2013 presented to the hospital with chest pain. Patient was diagnosed with STEMI, he was taken to cardiac lab engineer. In lab engineer prior stent was found to have in-stent thrombosis of the right coronary artery. This was revascularized and the patient was transferred to the CCU for close monitoring. Later he developed atrial fibrillation with RVR. She spontaneously converted to normal sinus rhythm. Patient was admitted to the cardiology service. Track Man Dr. Weber asked hospitalist team to help in management of his medical problems and also to help discharge the patient home. This patient has multiple comorbidities and history of prior stroke he has had increased risk of developing another stroke. Patient was started on anticoagulation with Lovenox/ warfarin bridge. I discussed with the patient risks of anticoagulation including intracranial hemorrhage, gastrointestinal hemorrhage, bleeding inside his urinary bladder, lungs, soft tissues: We also discussed possible severe disability and with result of bleeding. Patient accepts the risks and would like to continue with anticoagulation. He will have an appointment with his PCP soon after discharge from the hospital. His PCP will be managing his anticoagulation. Patient also need to follow up with his second cook and baker. Patient has mild chronic systolic CHF with ejection fraction 45. After patient improved he was discharged home with recommendation to follow up with his PCP for further management of his medical problems. Patient Condition @ Discharge: good Discharge Disposition: home Discharge Activity: resume regular activity, patient was advised to avoid heavy physical work or exertion Discharge Diet: regular diet, heart healthy, low fat, low salt, high fiber Information Provided to Patient: information about discharge medications Discharge Medications: I discussed with patient medication dosage, usage, goals of therapy, side effects, alternatives. During discharge patient was allert, oriented, able to make own informed decisions. We discussed possible severe side effects, adverse reactions, benefits, risks, alternatives of current and newly prescribed medications and diagnostic procedures. Patient verbalized understanding and agreed to current plan of care and discharge. TIME SPENT IN DISCHARGE ACTIVITY: Face to face activity greater then 30 minutes spent in discharge activity. 1. Discussed with patient re: discharge plan of care/treatment, and follow up care/services. 2. Patient agreed with discharge plan and further plan of care, all questions were answered/addressed, no further questions at the time of discharge. . Exam Vital Signs (Last) Date Time Temp Pulse Resp B/P Pulse Ox O2 Delivery O2 Flow Rate FiO2 12/06/16 11:19 69 12/06/16 08:00 37.1 18 118/75 95 Room Air 12/02/16 14:16 2 Exam Patient was seen and examined on the day of discharge Test 12/02/16 14:25 12/03/16 03:15 12/04/16 04:40 12/06/16 03:10 Neutrophils (%) (Auto) 77.6% (40-74) Lymphocytes (%) (Auto) 13.9% (14-46) Monocytes (%) (Auto) 7.2% (4-12) Eosinophils (%) (Auto) 0.8% (0-5) Basophils (%) (Auto) 0.3% (0-3) Total Bilirubin 0.5mg/dL (0.0-1.2) Aspartate Amino Transf (AST/SGOT) 27U/L (0-50) Alanine Aminotransferase (ALT/SGPT) 25U/L (0-44) Alkaline Phosphatase 102U/L (25-150) Total Protein 7.5g/dL (6.4-8.4) Albumin 4.4g/dL (3.4-5.0) White Blood Count 12.3th/mm3 (3.8-10.1) Red Blood Count 4.54mil/mm3 (4.40-5.80) Hemoglobin 13.0g/dL (13.8-17.2) Hematocrit 37.7% (41.0-50.0) Mean Corpuscular Volume 83.0fL (81-100) Mean Corpuscular Hemoglobin 28.6pg (27.0-35.0) Mean Corpuscular Hemoglobin Concent 34.5% (32.0-37.0) Red Cell Distribution Width 13.4% (12.3-15.4) Platelet Count 251bil/L (150-400) Magnesium Level 1.9mg/dL (1.6-2.6) Total Creatine Kinase 2038U/L (21-232) Creatine Kinase MB 300.0ng/mL (0.0-10.4) Creatine Kinase MB % 14.7% (0.0-5.0) Troponin T 12.54ug/L (0.0-0.011) Sodium Level 137mEq/L (134-144) Potassium Level 4.1mEq/L (3.5-5.2) Chloride Level 100mEq/L (97-108) Carbon Dioxide Level 24mmol/L (18-29) Blood Urea Nitrogen 13mg/dL (6-24) Creatinine 0.91mg/dL (0.76-1.27) Estimat Glomerular Filtration Rate 94mL/min (>59) Glucose Level 112mg/dL (60-99) Calcium Level 8.9mg/dL (8.5-10.1) Prothrombin Time 10.3sec (8.1-12.5) Prothromb Time International Ratio 0.96ratio Discharge Medications Discharge Medications Aspirin Chew (Aspirin Chew) 81 Mg Chew 81 MG PO DAILY (Reported) Atorvastatin Calcium (Atorvastatin Calcium) 80 Mg Tablet 80 MG PO DAILY ( Reported) Docusate Sodium (Colace) 100 Mg Capsule 300 MG PO DAILY (Reported) Enoxaparin (Lovenox) 80 Mg/0.8 Ml Syringe 80 MG SUBQ Q12 Prescribed by: SHAD SOL DO Ferrous Gluconate (Ferrous Gluconate) 324 Mg Tab 324 MG PO BID (Reported) Hydrocortisone (Cortizone 10) 28 Gm Gel..gram. 1 APPLIC EXT DAILY (Reported) apply daily to face for eczema Lansoprazole (Lansoprazole) 30 Mg Capsule.dr 15 MG PO DAILY (Reported) Lisinopril (Lisinopril) 5 Mg Tablet 5 MG PO BID (Reported) Metoprolol Succinate ER (Metoprolol Succinate ER) 50 Mg Tab.er.24h 50 MG PO DAILY (Reported) Warfarin Sodium (Coumadin) 5 Mg Tablet 5 MG PO ONCE@17 Prescribed by: DO Brigette VERDUGO Andriy MD December 06, 2016 12:04
[2016-12-06] MEDS ORDERED: WARF5TAB PO (12:49)
--- NOTE | 2016-12-06 14:52 | PCM.PHAPRO ---
Progress Anticoagulation WARFARIN DOSING PER PHARMACY [facility] RWP DFF Date December 06-November INR 1.0 (12/03) 0.96 INR change #VALUE! Warf Dose 5MG 5MG A/P -New start day #2. -Will continue warfarin 5 mg this evening if inpatient. November discharge on Lovenox /warfarin at home with close follow up Toro Kuo,PharmD Toro Kuo December 06, 2016 14:52
--- NOTE | 2016-12-06 15:03 | NUR ---
Social Work Note: Readiness for Discharge Data& Assessment: Per MD pt is getting closer to being medically ready for discharge. MARGO met with pt at bedside to assess for any unmet needs and confirm discharge plan. Pt is ambulating independently and confirmed plan to discharge home via POV when medically ready. Per MD request, MARGO faxed Lovenox prescription to pt preferred pharmacy [facility] in [place]. Per Pharmacist in the [facility], Pt insurance requires a prior authorization from the MD. MARGO provided phone number to MD. MARGO to continue to follow for any other needs. Pt denies any other needs at this time. Plan: Anticipate discharge home via POV with Lovenox pending authorization vs. home with Warfarin after being bridged. Pt denies any other needs at this time. SW to continue to follow for any other needs. CLARK Reza
--- NOTE | 2016-12-06 16:27 | PCM.PNMED ---
Subjective Date of Service December 06, 2016 Subjective This is a 51 y/o gentleman with hx/of CAD with NSTEMI and KAIN placements in 2014 (to distal RCA, prox OM1, RPLB), Hypertension, Hyperlipidemia, hx of CVA () with residual left side lateralization who on 12/02/2016 was admitted to [facility] with acute inferior STEMI and had emergent coronary angiography with PCI-- KAIN of in-stent occlusion of the mid RCA stent. The hospitalist service is consulted for assistance in managing the patient's anticoagulation. Hospital day # 3 The patient feels well today. He denies any chest pain, shortness of breath, palpitations, weakness or fevers. The remainder of ROS is negative except as noted above. Exam Vital Signs Vital Sign - Last Date Time Temp Pulse Resp B/P Pulse Ox O2 Delivery O2 Flow Rate FiO2 12/06/16 12:00 37.2 80 20 136/87 96 Room Air 12/02/16 14:16 2 Intake and Output 12/05/16 12/05/16 12/06/16 Cumulative From/Thru 15:00 23:00 07:00 12/02/16 14:16 - 12/06/16 06:27 Intake Total 1520 ml 600 ml 7733 ml Output Total 850 ml 800 ml 4050 ml Balance 670 ml -200 ml 3683 ml Intake Oral 1520 ml 600 ml 7060 ml IV Total 673 ml Output Urine Total 850 ml 800 ml 4050 ml # Voids 2 11 # Bowel Movements 1 Exam GENERAL: Alert, not in distress, cooperative HEAD: atraumatic, normocephalic, no bruises. EYES: BRYSON, EOMI, anicteric, able to fully open and close eyelids SKIN: Skin color normal, turgor normal. No visible rashes or lesions. EAR, NOSE, MOUTH, THROAT: Lips, oral mucosa, tongue gums, oropharynx are moist , pink, no lesions. Ears normal appearance, no lesions. NECK: no jugulo venous distention, no carotid bruits, carotid pulse normal contour, No carotid bruit, supple, no enlarged lymph nodes appreciated; ROM normal. RESPIRATORY: Lungs clear to auscultation. Good diaphragmatic excursion. Normal percussion sound. CARDIAC: normal S1 and S2; grade 3 crescendo-decrescendo murmur heard best at the left sternal boarder. ABDOMEN: Abdomen soft, non-tender. BS normal. No masses or organomegaly. MUSCULOSKELETAL: ROM full, muscles are not tender EXTREMITIES: no pitting edema in LE, no deformities, clubbing or skin discoloration. NEURO: Alert, oriented X 3, Sensation grossly intact., Cranial nerves II-XII intact, motor function R<L PULSES: 2+ radial, 2+ dorsalis pedis, 2+ carotid Lab and Diagnostics Result Diagram: 12/03/16 0315 12/04/16 0440 X-Rays, CTs and MRIs CXR IMPRESSION: No acute cardiopulmonary disease. Cardiac Echo Impressions Interpretation Summary Left ventricular wall thickness is at the upper limits of normal. There is inferior wall akinesis. There is posterolateral wall hypokinesis. Left ventricular ejection fraction is estimated to be 45 +/- 5%. The aortic valve is mildly calcified. The calculated aortic valve area is 1.3 cm2. The right ventricular systolic pressure is estimated at 30 mmHg assuming a right atrial pressure of 3 mm Hg. Compared to the prior echo study, there has been no change in the severity of aortic stenosis. Assessment & Plan This is a 51 y/o gentleman with hx/of CAD with NSTEMI and AKIN placements in 2014 (to distal RCA, prox OM1, RPLB), Hypertension, Hyperlipidemia, hx of CVA () with residual left side lateralization who on 12/02/2016 was admitted to [facility] with acute inferior STEMI and had emergent coronary angiography with PCI-- KAIN of in-stent occlusion of the mid RCA stent. The hospitalist service is consulted for assistance in managing the patient's anticoagulation. Hospital day # 3 Atrial fibrillation with RVR, acute, not POA -stable, controlled -patient when into afib with RVR following cath but spontaneously converted to sinus with metoprolol -continue metoprolol as per cardiology -[id number] of 4. -Patient agreed to anticoagulation when discussed with cardiology. Started warfarin, dosed by pharmacy, with treatment dose of Lovenox for bridging. -Per cardiology the patient should discontinue ASA once he is on warfarin for one month. -Unable to get Lovenox approved through insurance. Will continue to bridge with Lovenox today and appeal the insurance tomorrow again. STEMI, acute, POA -s/p cath with in-stent occlusion found -patient was noted to have mild ST elevation by the cardiology team, which have resolved. -management as per cardiology HTN, chronic, POA - management as per cardiology HLD, chronic, POA - continue statin Disposition: Per cardiology team. GI Prophylaxis: Not indicated VTE Prophylaxis: Other (as per cardiology) Resuscitation Status: CPR: Attempt Resuscitation Time spent 40 min Attending Statement Patient was seen and examined by me today. I confirmed pertinent physical exam findings and agree with physical exam as documented. I agree with overall assessment and plan of care as documented. Labs, radiology tests reviewed. Plan of care, medication side effects, home medication, diagnostic procedures and available alternatives were discussed and reviewed with the patient. All questions answered. Patient verbalized understanding, approved and agreed to plan of care. Arcelia Arambula DO December 06, 2016 16:27 Guero Machuca MD December 06, 2016 16:41
--- NOTE | 2016-12-06 18:29 | NUR ---
Lovenox Pt. denied pain. R. groin has large bruising area. No drainage or oozing from R. groin cath site. Pt. performed Lovenox self-injection properly with supervision. He reported he is comfortable to give himself injection at home. Pt's questions answered.
[2016-12-06] MEDS: MeTOProlol XL 50 mg ER24 Tablet PO SCH (20:19)
[2016-12-07] VITALS (7 sets, daily range): BP systolic 106–134; BP diastolic 71–86; PULSE 72–93; RESP 18–20; O2SAT 96–98
--- NOTE | 2016-12-07 04:37 | NUR ---
Groin Site Hematoma Groin site with hematoma felt around 0300 this AM. Area is hard, swollen and about the size of a tangerine. Direct pressure held for 15 minutes, and then outline margins of reduced hematoma marked. Reduced hematoma now about the size of a quarter or so, with 7 lb sand bag applied to area. IV Morphine given for pain from direct pressure held on hematoma. VS stable and afebrile, no c/o chest pain, Tele SR 70-80s. Pt to remain on bedrest until morning. Dr Kaur notified, and new orders for H/H this morning and IV Morphine for pain control ordered, and orders to monitor groin site closely. Groin site was soft with moderate purple bruising earlier on the scene shifter, with no hematoma felt at that time. Will continue to monitor. Addendum: 12/07/16 at 0731 by BART CHAPPELL RN Had to hold pressure on groin site 2 more times during the night to reduce hematoma again. Then sand bag of 7 lbs re-applied.
[2016-12-07 06:28] LABS: INR 1.25 ratio
--- NOTE | 2016-12-07 11:15 | PCM.PNMED ---
Subjective Date of Service December 07, 2016 Subjective No chest pain, racing heart, cough or dyspnea. No nausea or abdomen pain. No diarrhea. No dysuria. He developed a right groin hematoma last night. Pressure bag in place. No other overnight events. Exam Vital Signs Vital Sign - Last Date Time Temp Pulse Resp B/P Pulse Ox O2 Delivery O2 Flow Rate FiO2 12/07/16 11:03 80 12/07/16 08:24 37.0 18 106/71 97 Room Air 12/02/16 14:16 2 Intake and Output 12/06/16 12/06/16 12/07/16 Cumulative From/Thru 15:00 23:00 07:00 12/02/16 14:16 - 12/07/16 06:39 Intake Total 2311 ml 400 ml 45310 ml Output Total 645 ml 1600 ml 6295 ml Balance 1666 ml -1200 ml 4149 ml Intake Oral 2311 ml 400 ml 9771 ml IV Total 673 ml Output Urine Total 645 ml 1600 ml 6295 ml # Voids 2 13 # Bowel Movements 1 Exam Alert and oriented -3, no distress. Fluent speech Anicteric sclera. Lungs are clear with normal rate and effort Heart is regular without murmur gallop or rub Abdomen soft nontender, flat Extremities are free of edema. Skin is free of rash or lesions. IVs and Medications Medications Reviewed: Medications were reviewed in detail Lab and Diagnostics Result Diagram: 12/07/16 0520 12/04/16 0440 X-Rays, CTs and MRIs CXR IMPRESSION: No acute cardiopulmonary disease. Cardiac Echo Impressions Interpretation Summary Left ventricular wall thickness is at the upper limits of normal. There is inferior wall akinesis. There is posterolateral wall hypokinesis. Left ventricular ejection fraction is estimated to be 45 +/- 5%. The aortic valve is mildly calcified. The calculated aortic valve area is 1.3 cm2. The right ventricular systolic pressure is estimated at 30 mmHg assuming a right atrial pressure of 3 mm Hg. Compared to the prior echo study, there has been no change in the severity of aortic stenosis. Assessment & Plan This is a 51 y/o gentleman with hx/of CAD with NSTEMI and KAIN placements in 2014 (to distal RCA, prox OM1, RPLB), Hypertension, Hyperlipidemia, hx of CVA () with residual left side lateralization who on 12/02/2016 was admitted to [facility] with acute inferior STEMI and had emergent coronary angiography with PCI-- KAIN of in-stent occlusion of the mid RCA stent. The hospitalist service is consulted for assistance in managing the patient's anticoagulation. Hospital day # 3 #. Atrial fibrillation with RVR, improved, not POA -patient when into afib with RVR following cath but spontaneously converted to sinus with metoprolol -continue metoprolol as per cardiology -[id number] of 4. -Patient agreed to anticoagulation when discussed with cardiology. Started warfarin, dosed by pharmacy, with treatment dose of Lovenox for bridging. -Per cardiology the patient should discontinue ASA once he is on warfarin for one month. -Unable to get Lovenox approved through insurance. Will continue to bridge with Lovenox today and coumadin load. #. STEMI, acute, POA and improved. -s/p cath with in-stent occlusion found -patient was noted to have mild ST elevation by the cardiology team, which have resolved. -No change in his current medical management. #. Right groin hematoma, new. Cardiology alerted. Right groin ultrasound now. #. Essential hypertension, chronic, POA and stable. - management as per cardiology HLD, chronic, POA - continue statin Disposition: Possible discharge Tuesday if clinically improved. GI Prophylaxis: Not indicated VTE Prophylaxis: Other (as per cardiology) Resuscitation Status: CPR: Attempt Resuscitation Cornel Merino MD December 07, 2016 11:15
--- NOTE | 2016-12-07 16:12 | DRSVH ---
PROCEDURE: US DUPLEX DOPPLER UNILATERAL LEG ARTERIES, RIGHT INDICATIONS: swelling TECHNIQUE: Color and pulse Doppler interrogation was performed of the right lower extremity arterial system, wit h image documentation. COMPARISON: None. FINDINGS: Limited sonography of the right groin demonstrates a avascular, cystic structure within the right abraham in measuring 8.2 x 5.7 cm. Normal appearance of the right common femoral artery and vein as is demon strated with spectral and color-flow Doppler. IMPRESSION: 1. No actively bleeding right groin pseudoaneurysm identified. 2. Roughly 8.2 cm avascular rounded fluid collection within the right groin which could be related t o an evolving hematoma the findings are nonspecific. If indicated repeat ultrasound could be perform ed to assess for resolution. Dictated by: Eliseo Barnard [facility] Interpreted: Dejah Lala MD on 12/07/2016 at 16:09 Transcribed by: ASHLY on 12/07/2016 at 16:12 Approved by: Dejah Lala MD, PhD on 12/07/2016 at 16:40
[2016-12-07] MEDS: MeTOProlol XL 50 mg ER24 Tablet PO SCH (21:41)
[2016-12-08] VITALS (11 sets, daily range): BP systolic 95–119; BP diastolic 62–80; PULSE 67–83; RESP 15–24; O2SAT 94–100
[2016-12-08 03:56] LABS: INR 1.87 ratio
--- NOTE | 2016-12-08 05:54 | NUR ---
Groin/Tele/Ambulation DC'd one IV / occluded, On room air, A&O x3 using call light appropriately, no C/O pain, Hematoma/ no change , no pain. Ambulating adlib, Telemetry: SR 70-80
--- NOTE | 2016-12-08 13:20 | PCM.PNMED ---
Subjective Date of Service December 08, 2016 Subjective He is doing well today. He denies any problems overnight. No chest pain, palpitations, or shortness of breath. No nausea, or vomiting. No abdominal pain. His right groin hematoma is much improved. No overnight events noted. Exam Vital Signs Vital Sign - Last Date Time Temp Pulse Resp B/P Pulse Ox O2 Delivery O2 Flow Rate FiO2 12/08/16 11:35 36.8 77 18 96/62 98 Room Air 12/02/16 14:16 2 Intake and Output 12/07/16 12/07/16 12/08/16 Cumulative From/Thru 15:00 23:00 07:00 12/02/16 14:16 - 12/08/16 06:58 Intake Total 1440 ml 1600 ml 24536 ml Output Total 550 ml 1100 ml 7945 ml Balance 890 ml 500 ml 5539 ml Intake Oral 1440 ml 1600 ml 17344 ml IV Total 673 ml Output Urine Total 550 ml 1100 ml 7945 ml # Voids 13 # Bowel Movements 1 Exam Alert and oriented -3, no distress. Fluent speech Anicteric sclera. Lungs are clear with normal rate and effort Heart is regular without murmur gallop or rub Abdomen soft nontender, flat Extremities are free of edema. Skin is free of rash or lesions. His right groin has a small hematoma. Ultrasound was unremarkable. A fair amount of ecchymosis in the right groin and thigh as well. IVs and Medications Medications Reviewed: Medications were reviewed in detail Lab and Diagnostics Result Diagram: 12/07/16 0520 12/04/16 0440 X-Rays, CTs and MRIs CXR IMPRESSION: No acute cardiopulmonary disease. Cardiac Echo Impressions Interpretation Summary Left ventricular wall thickness is at the upper limits of normal. There is inferior wall akinesis. There is posterolateral wall hypokinesis. Left ventricular ejection fraction is estimated to be 45 +/- 5%. The aortic valve is mildly calcified. The calculated aortic valve area is 1.3 cm2. The right ventricular systolic pressure is estimated at 30 mmHg assuming a right atrial pressure of 3 mm Hg. Compared to the prior echo study, there has been no change in the severity of aortic stenosis. 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 The hospitalist service is consulted for assistance in managing the patient's anticoagulation. Hospital day # 3 #. Atrial fibrillation with RVR, improved, not POA -patient when into afib with RVR following cath but spontaneously converted to sinus with metoprolol -continue metoprolol as per cardiology -[id number] of 4. -Patient agreed to anticoagulation when discussed with cardiology. Started warfarin, dosed by pharmacy, with treatment dose of Lovenox for bridging. -Per cardiology the patient should discontinue ASA once he is on warfarin for one month. -Unable to get Lovenox approved through insurance. Will continue to bridge with Lovenox today and coumadin load. The patient will be therapeutic and stable for discharge tomorrow morning. #. STEMI, acute, POA and improved. He continues to remain stable. -s/p cath with in-stent occlusion found -patient was noted to have mild ST elevation by the cardiology team, which have resolved. -No change in his current medical management. #. Right groin hematoma, new. Improved. The patient did have an ultrasound revealing no evidence of pseudoaneurysm or leak. He has good peripheral pulse on the leg as well. Cardiology alerted. Right groin ultrasound now. #. Essential hypertension, chronic, POA and stable. Discussed this with Dr. Weber cardiology today. His pressures have been a little low with the addition of lisinopril we will therefore decrease his metoprolol from 50 down to 25 mg a day starting tomorrow. - management as per cardiology HLD, chronic, POA - continue statin Disposition: Possible discharge if clinically improved. GI Prophylaxis: Not indicated VTE Prophylaxis: Other (as per cardiology) Resuscitation Status: CPR: Attempt Resuscitation Cornel Merino MD December 08, 2016 13:20
--- NOTE | 2016-12-08 14:30 | NUR ---
Social Work Note: Readiness for Discharge Data& Assessment: EMR reviewed. Per MD pt is getting closer to being medically ready for discharge once his I & R levels are therapeutic. Pt has been bridging to Warfarin instead of being discharged on Lovenox. SW met with pt at bedside to check in and assess for any unmet needs. Pt confirmed discharge plan is to discharge home via POV. Pt explained his brother is his primary support and he will pick the pt up when he is ready for discharge. Pt denies any other needs at this time and feels he is ambulating at his baseline. No other discharge needs identified. SW to continue to follow if any needs arise. Plan: Anticipated discharge home via POV when medically ready. Pt denies any other needs at this time. No other discharge needs identified. SW to continue to follow if any needs arise. CLARK Reza
--- NOTE | 2016-12-08 16:27 | NUR ---
spiritual care: follow up conversational visit. pt reflected on family history, kermit medical history and his work with adults with disabilities. pt spoke with animation and care as he considered changes in his life and care for his health. pt reflected on his [facility] community and source of strenght/support it offers. -[facility] [place]
--- NOTE | 2016-12-08 17:02 | PROG NOTE ---
[address] [address] PROGRESS NOTE PATIENT: GUY CORNEJO : 1965 MR#: [id number] ADMIT: 12/02/2016 JOB ID: [id number] CARDIOLOGY CONSULTATION PROGRESS NOTE -- FOLLOWUP INPATIENT VISIT: DATE: Thursday, December 08, 2016 CONSULTING PHYSICIAN: Cardiology--Srinivasan Weber MD HOSPITAL COURSE AND INTERIM SUMMARY: Hospital day 7. I saw this 51-year-old man on Cardiology rounds today, Thursday, December 08, 2016, in the PCU unit. He was admitted November with acute inferior SD due to in-stent thrombosis in a mid RCA stent that was placed in 2014. Plavix had been stopped one month earlier. He was revascularized with a 2nd overlapping stent in the mid RCA. He has two other prior stents that remain intact. His hospital course thereafter has been stable from a coronary point of view; but he developed asymptomatic atrial fibrillation lasting only 30 minutes to 1 hour at 175 bpm. Because of atrial fibrillation and a high CHADS score, he was begun on Coumadin anticoagulation with Lovenox bridge. Thirty-six hours ago, he developed a right groin hematoma at the time of Lovenox, aspirin, Plavix and subtherapeutic Coumadin. 1. CAD, NSTEMI and PCI: He is stable from this point of view. He understands the critical importance of mandatory dual antiplatelet therapy and not to stop Plavix for any reason without immediate Cardiology consultation. He is re-ambulated and from this point of view has been ready for discharge. His optimal medical therapy regimen for coronary disease remains in place including high-intensity statin and beta marizol and SARAH inhibitor as well. 2. RLE hematoma: He has had no more evident bleeding after his unusual and unexpected hematoma that developed five days after catheterization. We attributed it to his anticoagulation. 3. EXAMINATION: The right lower extremity remains intact with large ecchymosis and a modest (5-8 cm) hematoma now becoming more firm but not much tender. He had a vascular ultrasound study yesterday that did not show a pseudoaneurysm and showed a right groin collection ("cystic") that seemed consistent with hematoma. Distal perfusion and dorsalis pedis pulse is intact. He has been ambulatory. 4. HYPERTENSION: He had severe hypertension that was difficult to control as an outpatient previously leading to increase of his lisinopril from 2.5 mg p.o. daily to b.i.d. Early in his hospital course, he had very severe hypertension with systolic pressure of 180. Now we increased metoprolol from 25 to 50 mg daily. Now his systolic blood pressures are closer to 100. We aim to back off slightly to let his pressures rise. 5. ATRIAL FIBRILLATION: No reported recurrent atrial fibrillation. There is still some question whether the post infarct episode was an isolated episode, but we have rediscussed this issue several times and elected anticoagulation in view of his elevated CHADS score. Could consider backing off on anticoagulation if intense followup monitoring does not show any more atrial fibrillation. ASSESSMENT: He is doing well and approaching discharge in terms of each of the above problems. I discussed the current status and recommendations with him and with the hospitalist team and with Cardiology. RECOMMENDATIONS: 1. Anticipate discharge as early as tomorrow when INR above 2 (INR 1.87 today). 2. Discontinue Lovenox when INR above 2. 3. He needs close outpatient followup by Primary Care and Cardiology and Coumadin Clinic. Would aim to keep INR closer to 2 than 3, given his heavy multiagent anticoagulation. 4. Hypertension--decrease metoprolol back to 25 mg daily. His blood pressure is a likely rise when he is more active as an outpatient. Can also reduce lisinopril to daily to prevent worsening of the current borderline blood pressures. 5. Atrial fibrillation--recommend at least 30-day Holter monitoring with Zio patch as part of his ongoing Cardiology office followup. 6. Hematoma--seems stable; but would arrange for close ongoing followup by Primary Care and Cardiology; and early attention to any further problems (unexpected).
[2016-12-08] MEDS: oxyCODONE-Acetamin 5-325 mg Tablet PO PRN (19:19)
--- NOTE | 2016-12-08 19:25 | NUR ---
Groin site Pt reported increased pain of groin site, upon assessment noted significant swelling of groin site. Pharmacology Professor informed of change in site. cold roll inspector in to evaluate the site. orders received for stat lab work and ultrasound. instructed to apply pressure and medicate patient for comfort of site. pedal pulses present and to continue to monitor via doppler. situation endorsed to SARA RN.
--- NOTE | 2016-12-08 20:24 | DRSVH ---
PROCEDURE: US DUPLEX DOPPLER UNILATERAL LEG ARTERIES, RIGHT INDICATIONS: POSSIBLE PSEUDOANEURSM RIGHT GROIN TECHNIQUE: Color and pulse Doppler interrogation was performed of the right lower extremity arterial system, wit h image documentation. COMPARISON: [facility], US, US ARTERY LEG DPLX UNI RT, 12/07/2016, 14:41. FINDINGS: There is a 4.7 x 3.8 cm pseudoaneurysm in the right groin with an approximately 5 mm neck. The under lying arterial structures are secured by edema. There is a 5.5 x 2.0 x 3.8 cm associated soft tissue hematoma. IMPRESSION: Right groin pseudoaneurysm. Associated hematoma. Arterial structures themselves are obscu red by edema and cannot be evaluated. Dictated by: Fawad Kidd M.D. on 12/08/2016 at 20:14 Approved by: Fawad Kidd M.D. on 12/08/2016 at 20:17
--- NOTE | 2016-12-08 20:35 | NUR ---
US ultrasound came in and did a retroperitoneal ultrasound STAT the tech will call the results to Dr. Daley. pt had increased pain post US gave 2mg IV morphine
[2016-12-08] MEDS: fentaNYL-PF 50 mCg/mL 2 mL Inj IVPUSH ONE ×2 (20:50→22:19)
[2016-12-08] MEDS ORDERED: Lidocaine PF 2% 10 mL Inj NERVEBLOCK ONE (21:35)
[2016-12-08] MEDS ORDERED: fentaNYL-PF 50 mCg/mL 2 mL Inj ONE (21:46)
--- NOTE | 2016-12-08 22:36 | PROG NOTE ---
[address] [address] PROGRESS NOTE PATIENT: GUY CORNEJO : 1965 MR#: [id number] ADMIT: 12/02/2016 JOB ID: [id number] DATE: SUBJECTIVE: This is a followup. Nurse came to me and informed me that patient was taking shower and developed worsening right groin swelling and pain. Hence I decided to go and immediately evaluate him. At present, he is lying on bed. He is complaining of pain in the right groin. He is able to move his right lower extremity. No motor or sensory symptoms. No active chest pain or worsening shortness of breath. The patient was admitted on December 02, [address]-elevation inferior wall KS with in-stent thrombosis of the mid RCA stent, which was placed in 2014. He got revascularized. The patient also has history of hypertension, CVA. Dr. Weber has been taking care of this patient in the hospital. The patient also has episode of atrial fibrillation, hence, he was started on anticoagulation along with continuation of aspirin and Plavix. Yesterday, patient developed right groin hematoma. He underwent ultrasound examination, which did not reveal any obvious pseudoaneurysm; however, the size of hematoma was about 8.22 x 5.7 cm. OBJECTIVE: Blood pressure 112/70, heart rate in 70s, respiratory rate 18, oxygen saturation 96%. Neck: No apparent JVP. No obvious carotid bruit at present. Chest: No obvious crepitation or rhonchi. CVS: S1, S2 normal. No S3, no S4. Abdomen: No obvious pulsatile mass. Right groin: Diffuse ecchymosis and large hematoma with tenderness. At present, I do not appreciate any bruit. No obvious pulsatile mass felt. I can feel distal pulses. No obvious motor or sensory loss. On telemetry, the patient has sinus rhythm. On December 03: Hemoglobin was 13. Yesterday morning it was 11.8. Sodium 137, potassium 4.1, BUN 13, creatinine 0.91 on . ASSESSMENT/PLAN: A large hematoma in the right groin with diffuse ecchymosis. Yesterday, ultrasound of the right groin did not reveal any pseudoaneurysm. I will repeat stat ultrasound again to make sure there is no significant progression. Will check stat CBC. In his case, I do not think, in view of large hematoma, we should continue anticoagulation along with dual antiplatelet therapy. The patient has stent thrombosis. He will need dual anti-platelet therapy. Hence, I will stopped Lovenox and Coumadin. INR was 1.87 today. Will consider pain medication. I called my associate, [facility] Daley, [facility] and told him about this development. He will follow the ultrasound as well as CBC. Discussed with the patient. He agreed and concurred. Followup dictated by Marjan Iverson. TIME SPENT: Total time spent Including physical examination, reviewing telemetry, as well as having discussion with Dr. Daley and the nurse about 35 minutes.
[2016-12-09] VITALS (14 sets, daily range): BP systolic 97–116; BP diastolic 66–74; PULSE 74–92; RESP 16–22; O2SAT 95–98
--- NOTE | 2016-12-09 00:39 | NUR ---
Right groin pseudoaneurysm with hematoma pathology technician called Dr. Daley with results who called this RN with orders for 2% lidocaine at the best side and a OT dose of 2mg IV morphine to be given and Dane from manager labor relations will be in to hold manual pressure then re-scan in the morning. when Dane got here he injected 30mls of lidocaine into the right groin site and i gave the 2mg of morphine, pt was still in a lot of pain and the groin was larger then Dane had anticipated called Dr. Daley back and spoke with him, Dr Daley gave me an order for Fentanyl 25mcg IV x1 then to monitor and wait 5 minutes if pt still maintaining stats and in pain give another 25 mcg IV may repeat up to 100mcg. 25mcg IV fentanyl given pressure applied at 2150, another 25mcg was given at 2155 and at 2200 pt maintaining his stats and pressure. pain not as bad, manual pressure was held for 20minutes by Dane then another 5 minutes by rn hemodialysis charge, Dane placed fem stop on pt with orders to keep at 80 PSI for one hour then decrease to 60 PSI for one hour then to remove. pt to remain on bedrest for the night not to have HOB greater then 30 degrees. pt agrees with plan. right pedal pulse palable the whole time. fem stop removed, right groin site not as large and firm but still very painful to touch, SpO2 monitor still connected to pt, will cont to closely monitor and assess.
[2016-12-09] MEDS: oxyCODONE-Acetamin 5-325 mg Tablet PO PRN ×2 (02:41→06:39)
[2016-12-09 03:48] LABS: INR 2.45 ratio
--- NOTE | 2016-12-09 05:18 | NUR ---
reapplied pressure around 0210 checked on pts right groin site it, it was more firm and appeared to be larger, obtained second opinion from discharge door operator, gave pain medications and held pressure for 20 minutes then applied fem stop back to site at 0235 PSI at 75 until 0335 decreased PSI to 60 then at 0435 removed fem stop, pt states his pain is better as long as no one is pushing on his site, pts H/H is stable INR increased.
[2016-12-09] MEDS ORDERED: PHYTONADIONE IV ONE (07:15)
[2016-12-09] MEDS ORDERED: SODIUM CHLORIDE 0.9% IV ONE (07:15)
--- NOTE | 2016-12-09 07:29 | NUR ---
right groin site pts right groin site with some increased swelling, called Dr. Iverson and he ordered STAT ultrasound, labs, FFP, Vit K and to place fem stop back on site. Dane from prosthetics lab technician here and reassessed and applied fem stop, orders placed and information and report passed on to Day RN and charge
[2016-12-09] MEDS: MeTOProlol XL 25 mg ER24 Tablet PO SCH (09:37)
--- NOTE | 2016-12-09 10:00 | PROG NOTE ---
[address] [address] PROGRESS NOTE PATIENT: GUY CORNEJO : 1965 MR#: [id number] ADMIT: 12/02/2016 JOB ID: [id number] DATE: 12/09/2016 SUBJECTIVE: At present, the patient is sitting on his bed trying to eat his breakfast. He is feeling better. He has a FemoStop in his right groin. No active chest pain or worsening shortness of breath, PND, or orthopnea. He is able to move both feet. In summary, this 51-year-old, male who has a known history of hypertension, coronary artery disease, history of PCI at [facility] with a drug-coated stent to distal RCA, proximal OM and right posterolateral branch in the past, presented on December 02, 2016, with acute ST-elevation inferior wall IN. Dr. Weber took him to the catheterization laboratory. RCA was occluded in the proximal part of prior stent just after RV branch. The OM stent was patent. Mid LAD had about 50% to 60% disease. Subsequently, the patient underwent Resolute drug-coated stent, 2.5 x 15 mm, to the RCA. The patient also developed AFib. Considering his CHADS2 vascular score, the patient was started on anticoagulation on top of dual anti-platelet therapy. On 2D echo, which was done on December 03, 2016, LV ejection fraction was 45% +/- 5%, and aortic valve area about 1.3 cm2, pulmonary artery systolic pressure about 30 mmHg. The mean gradient across the aortic valve 18 mmHg and peak aortic valve velocity 2.7 m/sec suggestive of overall mild to moderate aortic stenosis. Then on the , the patient developed a right groin hematoma. Dr. Weber evaluated the patient. He underwent duplex examination of the right groin which revealed a large hematoma. Yesterday evening, the patient developed worsening of right groin swelling, which was evaluated by me, and ordered stat ultrasound of groin which revealed, according to the report, a 4.7 x 3.8 cm aneurysm in the right groin with about a 5 mm neck, as well as soft tissue hematoma of 5.5 x 2.[address] Daley was informed overnight, and the patient underwent right groin FemoStop by catheterization optical laboratory manager Dane. His hemoglobin was checked last night. It was 11.4, and this morning 11.0. On December 07 it was 11.8, and on December 03 it was 13.0. Yesterday evening, Lovenox and Coumadin were stopped. We continued aspirin and Plavix because of recent stent thrombosis led to ST-elevation inferior wall IN, status post another drug-coated stent. Yesterday, his INR was 1.87, and this morning 2.45. I discussed his case with Dr. Kimble and decided to give him vitamin K 5 mg, as well as two fresh frozen plasma. OBJECTIVE: Blood pressure 114/72, heart rate 76, respiratory rate 17, oxygen saturation on room air 95%. Neck: No apparent JVP. Chest: No obvious crepitation or rhonchi. CVS: S1, S2 normal. No S3, no S4. Abdomen: No obvious pulsatile mass. Right groin has a FemoStop. He has a diffuse hematoma. However, distal extremity appears to be warm. No evidence of critical limb ischemia. No obvious motor or sensory loss in his leg or foot. He is able to move all his toes. GAMING SURVEILLANCE OBSERVER: Alert and oriented to time, place and person. LABORATORIES: Sodium 136, potassium 4.6, BUN 15, creatinine 0.74. I already mentioned hemoglobin above. ASSESSMENT AND PLAN: Large hematoma in the right groin, as well as pseudoaneurysm, with recent ST-elevation inferior wall myocardial infarction, status post drug-coated stent placement to the mid right coronary artery on December 02, 2016, by Dr. Weber, ischemic cardiomyopathy, essential hypertension, etc. The plan is to repeat right groin ultrasound again and if there is a persistent pseudoaneurysm, I will talk to radiologist regarding closing with thrombin injection. We have stopped Coumadin and Lovenox but will continue aspirin and Plavix. He is going to have fresh frozen plasma, as well as vitamin K, as his INR 2.45 today. I discussed the plan with the patient. He agrees and concurs. Appreciate Dr. Kimble's input. TIME SPENT: Total time spent today having discussion with my other associates and nurses around 45 minutes.
--- NOTE | 2016-12-09 10:09 | PCM.PNMED ---
Subjective Date of Service December 09, 2016 Subjective He is doing well except his right groin had more swelling last night. He was seen by cardiology. They felt that this was too much bleeding and have reversed his warfarin. He is receiving vitamin K and FFP and a FemoStop has been placed in his right groin. The recommendation is for no anticoagulation and simply continuing dual antiplatelet therapy. He denies any palpitations, dyspnea, or chest pain. No nausea, no abdominal pain. He also denies any pain or numbness in the right lower extremity below the groin. No other overnight events noted. Exam Vital Signs Vital Sign - Last Date Time Temp Pulse Resp B/P Pulse Ox O2 Delivery O2 Flow Rate FiO2 12/09/16 09:33 36.9 83 97/66 12/09/16 09:00 20 12/09/16 04:35 95 Room Air Intake and Output 12/08/16 12/08/16 12/09/16 Cumulative From/Thru 15:00 23:00 07:00 12/02/16 14:16 - 12/09/16 06:05 Intake Total 1280 ml 560 ml 01785 ml Output Total 650 ml 300 ml 8895 ml Balance 630 ml 260 ml 6429 ml Intake Oral 1280 ml 400 ml 53251 ml IV Total 160 ml 833 ml Output Urine Total 650 ml 300 ml 8895 ml # Voids 13 # Bowel Movements 1 Exam Alert and oriented -3, no distress. Fluent speech Anicteric sclera. Lungs are clear with normal rate and effort Heart is regular without murmur gallop or rub Abdomen soft nontender, flat Extremities are free of edema. Skin is free of rash or lesions. Right groin does have very large ecchymosis or some scrotal edema as well. The patient has a Fem Stop device in the right groin. He has a good pedal pulse on the right leg. Lab and Diagnostics Result Diagram: 12/09/1630912/09/16 031 X-Rays, CTs and MRIs CXR IMPRESSION: No acute cardiopulmonary disease. Cardiac Echo Impressions Interpretation Summary Left ventricular wall thickness is at the upper limits of normal. There is inferior wall akinesis. There is posterolateral wall hypokinesis. Left ventricular ejection fraction is estimated to be 45 +/- 5%. The aortic valve is mildly calcified. The calculated aortic valve area is 1.3 cm2. The right ventricular systolic pressure is estimated at 30 mmHg assuming a right atrial pressure of 3 mm Hg. Compared to the prior echo study, there has been no change in the severity of aortic stenosis. 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 The hospitalist service is consulted for assistance in managing the patient's anticoagulation. Hospital day # 3 #. Recurrent right groin hematoma. New. The patient will have his warfarin reversed his alcohol lined with vitamin K and FFP. A pressure devices applied to the groin. Cardiology is recommending no anticoagulation at this juncture and simply continuing dual antiplatelet agents. This will delay his discharge by one or 2 days contingent upon control of bleeding. He also has a statin ultrasound TO RULE OUT PSEUDOANEURYSM. #. Atrial fibrillation with RVR, improved, not POA -patient when into afib with RVR following cath but spontaneously converted to sinus with metoprolol -continue metoprolol as per cardiology -[id number] of 4. -The plan is to stop warfarin as outlined above. #. STEMI, acute, POA and improved. He continues to remain stable. -s/p cath with in-stent occlusion found -patient was noted to have mild ST elevation by the cardiology team, which have resolved. -No change in his current medical management. #. Essential hypertension, chronic, POA and stable. Discussed this with Dr. Weber cardiology today. His pressures have been a little low with the addition of lisinopril we will therefore decrease his metoprolol from 50 down to 25 mg a day starting tomorrow. - management as per cardiology HLD, chronic, POA - continue statin Disposition: Possible discharge if clinically improved. GI Prophylaxis: Not indicated VTE Prophylaxis: Other (as per cardiology) Resuscitation Status: CPR: Attempt Resuscitation Cornel Merino MD December 09, 2016 10:09
--- NOTE | 2016-12-09 13:11 | DRSVH ---
PROCEDURE: US DUPLEX DOPPLER UNILATERAL LEG ARTERIES, RIGHT INDICATIONS: ASSESS PROGRESS OF PSEUDOANEURYSM TECHNIQUE: Color and pulse Doppler interrogation was performed of the right lower extremity arterial system, wit h image documentation. COMPARISON: [facility], US, US ARTERY LEG DPLX UNI RT, 12/08/2016, 19:35. FINDINGS: The right groin, there is a 5.0 x 3.4 x 2.7 cm hematoma from prior pseudoaneurysm. No definite news intern al flow seen. There is a residual patent neck measuring 1.5 mm (previously 5.0 mm). Superficial femoral artery appe ars patent IMPRESSION: Right groin hematoma as above. Decreased size of (patent) neck of the prior pseudoaneurysm as detaile d above. Dictated by: Enoc Joseph M.D. on 12/09/2016 at 13:04 Approved by: Enoc Joseph M.D. on 12/09/2016 at 13:09
--- NOTE | 2016-12-09 14:37 | NUR ---
spiritual care: follow up pt reported on experiences including pain and concern around hemotoma and delay in his discharge. Pt using positive attitude very deliberately as he alvarez with [id number] hospitalization and expects visitors. pt open to caring director agency & strategic partnerships visit later in day. Addendum: 12/09/16 at 1847 by THANIA BRUMFIELD CM brief follow up visit to tell pt of caring director agency & strategic partnerships change of plans. Jorge Luis to be here tomorrow (tuesday) afternoon for supportive visit to pt
--- NOTE | 2016-12-09 19:36 | NUR ---
Groin site Pt has large hematoma in right groin site, fem stop placed back on Pt by recyclable products sorter RN Dane, cardiology already notified by NOC RN, orders placed for 2 units FFP and 5mg vit-K which were administered without issues. Pt's fem stop left in place until US arrived in the late am, Pt premedicated with 2mg IV morphine which Pt reported as effective. Pt's groin site hematoma appeared to be reduced after fem stop removed, Pt kept on bedrest, groin site reassessed multiple times throughout remainder of the shift and appeared unchanged to both RN and Pt.
[2016-12-10 03:49] LABS: INR 1.05 ratio
[2016-12-10 04:26] VITALS: BP 103/69; PULSE 92; RESP 20; O2SAT 98
--- NOTE | 2016-12-10 06:01 | NUR ---
groin site/pain pts right groin site hematoma with no change this shift, this RN and pt have palpated multiple times this shift and feel it is the same in size and firmness, pt states pain is a 4-5/10 with palpation but has declined the need for pain medication, tele SR have kept pt on bedrest this shift
[2016-12-10 08:00] VITALS: PULSE 106; PULSE 84
[2016-12-10 08:26] VITALS: BP 123/81; PULSE 88; RESP 18; O2SAT 96
[2016-12-10] MEDS: MeTOProlol XL 25 mg ER24 Tablet PO SCH (08:35)
--- NOTE | 2016-12-10 11:48 | PROG NOTE ---
[address] [address] PROGRESS NOTE PATIENT: GUY CORNEJO : 1965 MR#: [id number] ADMIT: 12/02/2016 JOB ID: [id number] DATE: 12/10/2016 SUBJECTIVE: The patient is feeling better. No more bleeding from the right groin. No active chest pain or worsening shortness of breath, PND, orthopnea. No cardiovascular symptoms. OBJECTIVE: Blood pressure 123/81, heart rate 88, respiratory rate 18, oxygen saturation on room air 96%. No apparent JVD. No obvious carotid bruit. Chest: No obvious crepitation, rhonchi. CVS: S1, S2 normal. No S3, no S4. Abdomen: No obvious pulsatile mass. Right groin has diffuse hematoma and ecchymosis involving the scrotum as well. No new changes from yesterday. I do not appreciate any bruit or obvious pulsatile mass. Distal right foot: No evidence of critical limb ischemia. He is able to move toes. Preserved motor and sensory function. Telemetry: Sinus rhythm. Last night, he had an episode of sinus tachycardia, rate about 120. According to the patient, he was trying to urinate at that time. Did not have any symptoms. LABORATORY DATA: Sodium 136, potassium 4.6, BUN 15, creatinine 0.74. Hemoglobin yesterday was 11, which was stable, with hematocrit 32.7. Repeat ultrasound yesterday revealed clotted, previously mentioned pseudoaneurysm with large hematoma. The previously mentioned pseudoaneurysm neck has decreased from 5 mm to 1.5 mm. Patent SFA. ASSESSMENT AND PLAN: Large hematoma as well as pseudoaneurysm, status post initial FemoStop, then ultrasound-guided compression with clotting of pseudoaneurysm. Overall, hemoglobin stable. No evidence of critical limb ischemia. The patient has large hematoma in the groin. Coumadin and Lovenox has been stopped. The patient has received fresh frozen plasma and vitamin K. Repeat INR decreased from 2.45-1.05. The patient had one episode of atrial fibrillation in the setting of acute ST-elevation inferior wall myocardial infarction. He received PCI of the RCA stent thrombosis. We will continue aspirin and Plavix. However, will not give anticoagulation in view of significant hematoma and pseudoaneurysm. He is on beta marizol, high intensity statin as well as on SARAH inhibitor which we will continue. On echocardiogram, which was done on December 03, his LV ejection fraction was 45+/- 5%. His aortic valve area was about 1.3 cm2. He has a grade 2/6 ejection systolic murmur at the base as well, which has not changed. Clinically, he appears compensated. The patient will need another ultrasound of the groin. Will check CBC, BMP in the morning. Tomorrow, my associate, Dr. Daley, will be available to see the patient. TOTAL TIME SPENT: Today, about 35 minutes.
[2016-12-10 12:05] LABS: Mean Corpuscular Hemoglobin 28.9 pg (27.0-35.0); Mean Corpuscular Volume 86.3 fL (81-100)
[2016-12-10 12:32] VITALS: BP 97/63; PULSE 78; RESP 20; O2SAT 98
--- NOTE | 2016-12-10 12:51 | PCM.PNMED ---
Subjective Date of Service December 10, 2016 Subjective Patient is feeling well he is now minimum bed for last 3 days following previous rising event which led to acute exacerbation of inguinal hematoma. Overall he says he feels well, appetite is good, and eyes any fevers chills, chest pain entirely resolved no shortness of breath or other complaints at this time. Groin hematoma does cause some discomfort but no pain. Exam Vital Signs Vital Sign - Last Date Time Temp Pulse Resp B/P Pulse Ox O2 Delivery O2 Flow Rate FiO2 12/10/16 12:32 37.1 78 20 97/63 98 Room Air Intake and Output 12/09/16 12/09/16 12/10/16 Cumulative From/Thru 15:00 23:00 07:00 12/02/16 14:16 - 12/10/16 06:35 Intake Total 735 ml 980 ml 737 ml 73033 ml Output Total 1325 ml 1450 ml 20025 ml Balance 735 ml -345 ml -713 ml 6106 ml Intake Oral 980 ml 737 ml 64167 ml IV Total 60 ml 893 ml FFP 675 ml 675 ml Output Urine Total 1325 ml 1450 ml 36463 ml # Voids 13 # Bowel Movements 0 1 General: Alert, Oriented X3, Cooperative, Mild Distress Mouth: Mucous Membr Moist/[place] Cardiovascular: Exam Unremarkable Abdomen: Non-tender, Non-distended, Other (obese) Extremities: No cyanosis/clubbing/edma bilat Skin: Other (there is large mass secondary hematoma which is palpable in right inguinal region. There is extensive bruising around upper thigh lower abdominal and groin region as well. No evidence of bleeding, area of previous femoral access site is covered by clear occlusive dressing which demonstrates no evidence of active reading or drainage. ) Neurological: Grossly Neurologically Intact IVs and Medications Medications Reviewed: Medications were reviewed in detail Lab and Diagnostics Result Diagram: 12/10/16 1200 12/09/16 0310 X-Rays, CTs and MRIs CXR IMPRESSION: No acute cardiopulmonary disease. Cardiac Echo Impressions Interpretation Summary Left ventricular wall thickness is at the upper limits of normal. There is inferior wall akinesis. There is posterolateral wall hypokinesis. Left ventricular ejection fraction is estimated to be 45 +/- 5%. The aortic valve is mildly calcified. The calculated aortic valve area is 1.3 cm2. The right ventricular systolic pressure is estimated at 30 mmHg assuming a right atrial pressure of 3 mm Hg. Compared to the prior echo study, there has been no change in the severity of aortic stenosis. 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 The hospitalist service is consulted for assistance in managing the patient's anticoagulation. Hospital day # 6 #. Recurrent right groin hematoma. New. The patient has had his warfarin held and anticoagulation reversed with vitamin K and FFP. A pressure devices applied to the groin previously now removed through an apparent stasis. Cardiology is recommending no anticoagulation at this juncture and simply continuing dual antiplatelet agents. This will delay his discharge by one or 2 days contingent upon control of bleeding. He also has a pending ultrasound TO monitor improvement of PSEUDOANEURYSM. #. Atrial fibrillation with RVR, improved, not POA -patient when into afib with RVR following cath but spontaneously converted to sinus with metoprolol -continue metoprolol as per cardiology -[id number] of 4. -The plan is to stop warfarin as outlined above. #. STEMI, acute, POA and improved. He continues to remain stable. -s/p cath with in-stent occlusion found -patient was noted to have mild ST elevation by the cardiology team, which have resolved. -No change in his current medical management. Continue Plavix and aspirin. #. Essential hypertension, chronic, POA and stable. Discussed this with Dr. Weber cardiology today. His pressures have been a little low with the addition of lisinopril we will therefore decrease his metoprolol from 50 down to 25 mg a day starting tomorrow. - management as per cardiology HLD, chronic, POA - continue statin Disposition: Possible discharge in next 1-2 days if clinically stable, and pseudoaneurysm shrinking. Pain Evaluation: Adequate Pain Control GI Prophylaxis: Not indicated VTE Prophylaxis: Other (as per cardiology) Resuscitation Status: CPR: Attempt Resuscitation Time spent 30 minutes Ho Kessler DO December 10, 2016 12:51
--- NOTE | 2016-12-10 15:08 | DRSVH ---
PROCEDURE: US DUPLEX DOPPLER UNILATERAL LEG ARTERIES, RIGHT INDICATIONS: RIGHT GROIN HEMATOMA TECHNIQUE: Color and pulse Doppler interrogation was performed of the right lower extremity arterial system, wit h image documentation. COMPARISON: [facility], US, US ARTERY LEG DPLX UNI RT, 12/08/2016, 19:35. [facility], US, US ARTERY LEG DPLX UNI RT, 12/07/2016, 14:41. [facility], US, US ARTERY LEG DPLX UNI RT, 12/09/2016, 11:35. FINDINGS: There is an irregular mass in the right groin with no internal vascularity compatible with a hematoma. The main component measures 5.4 x 2.7 x 2.7 cm, similar in size compared to 12/09/2016. Me dial to the main component, there is a 3.9 x 2.6 x 2.0 cm hematoma. Small venous vessels are seen adj acent to the right groin hematoma. Previously seen pseudoaneurysm "neck" is no longer visualized. IMPRESSION: Hematomas in the right groin. The pseudoaneurysm "neck" is no longer visualized. Dictated by: Mady Waldrop M.D. on 12/10/2016 at 14:51 Approved by: Mady Waldrop M.D. on 12/10/2016 at 15:06
[2016-12-10 16:33] VITALS: BP 121/75; PULSE 88; RESP 18; O2SAT 98
[2016-12-10 22:00] VITALS: BP 94/58; PULSE 101; RESP 16; O2SAT 97
[2016-12-11] VITALS (9 sets, daily range): BP systolic 91–109; BP diastolic 58–72; PULSE 76–90; RESP 16–18; O2SAT 94–99
[2016-12-11 03:33] LABS: Mean Corpuscular Hemoglobin 28.7 pg (27.0-35.0); Mean Corpuscular Volume 86.2 fL (81-100)
[2016-12-11 03:50] LABS: INR 1.03 ratio
--- NOTE | 2016-12-11 06:30 | NUR ---
Bedrest/Groin Site Pt continued to be on bedrest throughout the entire shift. This AM prior to shift change pt's groin site was checked again and the site has increased in size and firmness. Cardiology has been paged and awaiting further orders from the MD. Pt has requested to be premedicated prior to any pressure being applied to the site.
[2016-12-11] MEDS: MeTOProlol XL 25 mg ER24 Tablet PO SCH (08:43)
--- NOTE | 2016-12-11 12:09 | NUR ---
NUTRITION ASSESSMENT: ASSESS:51 YO male admitted with acute inferior STEMI, status post emergent coronary angiography with PCI-KAIN of in-stent occlusion of the mid RCA stent. He remains admitted with recurrent right groin hematoma. The patient has had his warfarin held and anticoagulation reversed with vitamin K and FFP. Pressure devices applied to the groin previously now removed through an apparent stasis. Cardiology is recommending no anticoagulation at this juncture and simply continuing dual antiplatelet agents. This will delay his discharge by one or 2 days contingent upon control of bleeding. He also has a pending ultrasound to monitor improvement of pseudoaneurysm. PMHx:CAD, HTN, HLD, history smoking, CVA. DIET:Heart healthy. PO intake 75% - 100% trays. LABS: Reviewed. Cr 0.72, Glu 114. MEDICATIONS: Reviewed. NUTRITION FOCUSED PHYSICAL ASSESSMENT: GI symptoms / stool: BM x 1 (12/03).Sergio: 17. Skin Integrity: No other issues noted. ANTHROPOMETRICS: Current Wt: 83.9 kgBMI: 31.0 kg/m2. Admit weight: 85.3 kg IBW: 59.1 kg (144% IBW) ESTIMATED NEEDS (CLASS I OBESITY): Calories: 1477 - 2068 kcal (25 - 35 kca/ kg IBW) Protein: 106 - 118 g protein (1.8 - 2.0 g/ kg IBW) Fluid: Approx. 2559 mL (30 mL / kg BW) NUTRITION DIAGNOSIS: 1)No diagnosis at this time. INTERVENTION: 1) No intervention at this time. MONITOR/EVALUATE: Diet tolerance, PO intake, labs, GI/nutrition status. Follow up per low nutrition risk guidelines.
--- NOTE | 2016-12-11 12:29 | DRSVH ---
PROCEDURE: US EXTREMITY SONOGRAM LIMITED ([id number]) INDICATIONS: recurrent pseudoaneurysm TECHNIQUE: Real-time scanning was performed of the right groin, with image documentation. COMPARISON: None. FINDINGS: There is a persistent appearance of hematoma, minimally decreased compared to prior exam cu rrently measuring 49 x 32 x 23 mm compared to 50 x 34 x 27 mm. The previously identified pseudoaneury sm continues to demonstrate a very minimal residual appearance of flow within the neck. However, flow remained nonvisualized within the remaining portion of the previously appeared thrombosed pseudoaneu rysm. IMPRESSION: Newly decreased hematoma. Minimal residual appearance of flow within the pseudoaneurysm n natacha. Persistent nonvisualization of thrombosis within the remaining portions of the pseudoaneurysm. Dictated by: Urmila Deleon M.D. on 12/11/2016 at 12:26 Approved by: Urmila Deleon M.D. on 12/11/2016 at 12:27
--- NOTE | 2016-12-11 12:30 | NUR ---
Groin Site Swelling presented prior to shift change. Checked groin site this am and it is swollen, tender, bruising, no bleeding under the dressing. Roving Can Tender paged and ordered ultrasound. Closely monitor site.
--- NOTE | 2016-12-11 14:02 | NUR ---
Social Work: Readiness for Discharge D: Pt discussed in am rounds. Pt still with a hematoma and is not yet medically stable for discharge at this time. Since developing hematoma, pt has been bedbound and not able to ambulate. MAITRE D' met with pt at bedside. Sw role explained. Pt lives at home, alone. Pt states that at baseline he is I and uses walking sticks and occasionally a walker for ambulation. Despite 2 days of bedrest, pt anticipates that he will be safe to discharge home without any supportive services from home health. Pt states that his brother lives nearby and assists him as needed. HH CHOICE LIST PROVIDED for pt to review in case he is not back to his baseline functioning after bedrest. A: Pt who is from home, alone and I at baseline. P: Evolving; pt anticipates discharging home with no needs from sw. MAITRE D' is following closely and will assist as ordered by MD for safe discharge planning- r/o possible home health. CLARK Ledezma
--- NOTE | 2016-12-11 15:02 | PCM.PNMED ---
Subjective Date of Service December 11, 2016 Subjective Patient notes he is overall doing well however subjectively he feels the inguinal mass on left side presenting hematoma is growing. Otherwise he is feeling well, but has remained in bed since a couple days prior when hematoma grew last time he was ambulating more. Any chest pain shortness of breath or other complaints at this time. Exam Vital Signs Vital Sign - Last Date Time Temp Pulse Resp B/P Pulse Ox O2 Delivery O2 Flow Rate FiO2 12/11/16 12:46 36.6 16 100/60 97 Room Air 12/11/16 08:47 76 Intake and Output 12/10/16 12/10/16 12/11/16 Cumulative From/Thru 15:00 23:00 07:00 12/02/16 14:16 - 12/11/16 06:34 Intake Total 1230 ml 640 ml 86406 ml Output Total 775 ml 1225 ml 77763 ml Balance 455 ml -585 ml 5976 ml Intake Oral 1230 ml 640 ml 38611 ml IV Total 893 ml FFP 675 ml Output Urine Total 775 ml 1225 ml 29727 ml # Voids 13 # Bowel Movements 0 1 General: Alert, Oriented X3, Cooperative, No Acute Distress Mouth: Mucous Membr Moist/[place] Chest & Lungs: Chest Wall Normal Cardiovascular: Regular Rate/Rhythm Abdomen: Non-tender, Non-distended, Other (inguinal region on right side still demonstrating extensive bruising in addition to large inguinal mass on right side is firm but not hard approximately same size as previous examination. No active bleeding noted clear occlusive dressings covering set of previous femoral access) Neurological: Grossly Neurologically Intact IVs and Medications Medications Reviewed: Medications were reviewed in detail Lab and Diagnostics Result Diagram: 12/11/1631812/11/16318 X-Rays, CTs and MRIs CXR IMPRESSION: No acute cardiopulmonary disease. Cardiac Echo Impressions Interpretation Summary Left ventricular wall thickness is at the upper limits of normal. There is inferior wall akinesis. There is posterolateral wall hypokinesis. Left ventricular ejection fraction is estimated to be 45 +/- 5%. The aortic valve is mildly calcified. The calculated aortic valve area is 1.3 cm2. The right ventricular systolic pressure is estimated at 30 mmHg assuming a right atrial pressure of 3 mm Hg. Compared to the prior echo study, there has been no change in the severity of aortic stenosis. Assessment & Plan This is a 51 y/o gentleman with hx/of CAD with NSTEMI and KAIN placements in 2014 (to distal RCA, prox OM1, RPLB), Hypertension, Hyperlipidemia, hx of CVA () with residual left side lateralization who on 12/02/2016 was admitted to [facility] with acute inferior STEMI and had emergent coronary angiography with PCI-- KAIN of in-stent occlusion of the mid RCA stent. The hospitalist service is consulted for assistance in managing the patient's anticoagulation. Hospital day # 7 #. Recurrent right groin hematoma. New. - The patient has had his warfarin held and anticoagulation reversed with vitamin K and FFP. - A pressure devices applied to the groin previously now removed through an apparent stasis. - Cardiology is recommending no anticoagulation at this juncture and simply continuing dual antiplatelet agents. - Repeated inguinal imaging with ultrasound demonstrates improving thrombus in spite of subjective increase in mass described by patient - Continue close monitoring will consider discharge in 1-2 days should condition remained stable . - Continue to appreciate cardiology recommendations #. Atrial fibrillation with RVR, improved, not POA -patient when into afib with RVR following cath but spontaneously converted to sinus with metoprolol -continue metoprolol as per cardiology -[id number] of 4. -The plan is to stop warfarin as outlined above. #. STEMI, acute, POA and improved. He continues to remain stable. -s/p cath with in-stent occlusion found -patient was noted to have mild ST elevation by the cardiology team, which have resolved. -No change in his current medical management. Continue Plavix and aspirin. #. Essential hypertension, chronic, POA and stable. Discussed this with Dr. Weber cardiology today. His pressures have been a little low with the addition of lisinopril we will therefore decrease his metoprolol from 50 down to 25 mg a day starting tomorrow. - management as per cardiology HLD, chronic, POA - continue statin Disposition: Possible discharge in next 1-2 days if clinically stable, no evidence of recurrent or enlarging hematoma and inguinal region. Pain Evaluation: Adequate Pain Control GI Prophylaxis: Not indicated VTE Prophylaxis: Other (as per cardiology) Resuscitation Status: CPR: Attempt Resuscitation Time spent 25 minutes Ho Kessler DO December 11, 2016 15:02
--- NOTE | 2016-12-11 15:48 | PCM.PNCARD ---
Subjective Date of service December 11, 2016 Chief Complaint pseudoaneurysm Constitutional: Denies: Chills, Fever Cardiovascular: Denies: Chest Pain, Irregular Heart Rate Gastrointestinal: Reports: Other (right groin tenderness, large hematoma, significant bruising) Neurological: Denies: Confusion Exam Vital Signs Vital Sign - Last Date Time Temp Pulse Resp B/P Pulse Ox O2 Delivery O2 Flow Rate FiO2 12/11/16 12:46 36.6 16 100/60 97 Room Air 12/11/16 08:47 76 Intake and Output 12/10/16 12/10/16 12/11/16 Cumulative From/Thru 15:00 23:00 07:00 12/02/16 14:16 - 12/11/16 06:34 Intake Total 1230 ml 640 ml 07966 ml Output Total 775 ml 1225 ml 41570 ml Balance 455 ml -585 ml 5976 ml Intake Oral 1230 ml 640 ml 66664 ml IV Total 893 ml FFP 675 ml Output Urine Total 775 ml 1225 ml 89524 ml # Voids 13 # Bowel Movements 0 1 General: Pleasant Cooperative Extremities: Other (bruising, hematoma, site was marked and dated) Lab and Diagnostics Result Diagram: 12/11/1631812/11/16318 Assessment & Plan Problems: (1) Pseudoaneurysm Plan: Slowly resolving. Very small communication between pseudoaneurysm and RFA. We will ask him to ambulate in room and sit in chair for today and see how he does. Possibly ambulate in hallway tomorrow and reassess when he may go home. Site was marked and dated to see if hematoma increases. Status: Acute ICD Code: I72.9 (2) STEMI (ST elevation myocardial infarction) Status: Acute ICD Code: I21.3 Pain Evaluation: Adequate Pain Control GI Prophylaxis: Not indicated VTE Prophylaxis: Other (as per cardiology) Resuscitation Status: CPR: Attempt Resuscitation Time spent 20 minutes. Jovon Daley MD December 11, 2016 15:48
[2016-12-12 03:32] VITALS: BP 121/71; PULSE 83; RESP 16; O2SAT 97
[2016-12-12 04:09] LABS: Mean Corpuscular Hemoglobin 28.7 pg (27.0-35.0); Mean Corpuscular Volume 86.5 fL (81-100)
[2016-12-12 04:10] LABS: BASOPHILS % (AUTO) 0.3 % (0-3); EOSINOPHILS % (AUTO) 3.1 % (0-5); MONOCYTES % (AUTO) 9.3 % (4-12); NEUTROPHILS % (AUTO) 65.1 % (40-74); Platelet Count 254 bil/L (150-400)
[2016-12-12 05:11] VITALS: PULSE 82
--- NOTE | 2016-12-12 06:24 | NUR ---
Groin Site Update Pt's hematoma in the right groin site continues to be firm and tender to the touch within the black marker outline with a small portion of the marked site going down in size and feeling soft to the touch. Pt does still c/o pain when groin site is touched but refuses pain medication. The hematoma has not increased in size and moved outside of the black marker outline made by the MDs on 12/11/2016.
[2016-12-12 07:31] VITALS: PULSE 76
[2016-12-12] MEDS: MeTOProlol XL 25 mg ER24 Tablet PO SCH (07:46)
[2016-12-12] MEDS: oxyCODONE-Acetamin 5-325 mg Tablet PO PRN (07:47)
[2016-12-12 09:06] VITALS: BP 110/65; PULSE 76; RESP 16; O2SAT 96
[2016-12-12 12:58] VITALS: BP 97/65; PULSE 71; RESP 18; O2SAT 100
--- NOTE | 2016-12-12 15:01 | PCM.PNCARD ---
Subjective Date of service December 12, 2016 Chief Complaint pseudoaneurysm History of Present Illness Patient has ambulated in hallway several times today and no significant changes with heamatoma. Constitutional: Denies: Fever, Sweats Cardiovascular: Denies: Chest Pain Neurological: Denies: Confusion Exam Vital Signs Vital Sign - Last Date Time Temp Pulse Resp B/P Pulse Ox O2 Delivery O2 Flow Rate FiO2 12/12/16 12:58 36.7 71 18 97/65 100 Room Air Intake and Output 12/11/16 12/11/16 12/12/16 Cumulative From/Thru 15:00 23:00 07:00 12/02/16 14:16 - 12/12/16 06:55 Intake Total 617 ml 587 ml 47676 ml Output Total 575 ml 625 ml 56260 ml Balance 42 ml -38 ml 5980 ml Intake Oral 617 ml 587 ml 32929 ml IV Total 893 ml FFP 675 ml Output Urine Total 575 ml 625 ml 14975 ml # Voids 13 # Bowel Movements 1 General: Pleasant Cooperative Additional Information: Right groin site looks the same or better in comparison to yesterday. Lab and Diagnostics Result Diagram: 12/12/16 0332 12/11/16 0319 Additional Diagnostics: Date of Service: 12/11/16 0951 PROCEDURE: US EXTREMITY SONOGRAM LIMITED ([id number]) INDICATIONS: recurrent pseudoaneurysm TECHNIQUE: Real-time scanning was performed of the right groin, with image documentation. COMPARISON: None. FINDINGS: There is a persistent appearance of hematoma, minimally decreased compared to prior exam currently measuring 49 x 32 x 23 mm compared to 50 x 34 x 27 mm. The previously identified pseudoaneurysm continues to demonstrate a very minimal residual appearance of flow within the neck. However, flow remained nonvisualized within the remaining portion of the previously appeared thrombosed pseudoaneurysm. IMPRESSION: Newly decreased hematoma. Minimal residual appearance of flow within the pseudoaneurysm neck. Persistent nonvisualization of thrombosis within the remaining portions of the pseudoaneurysm. Date of Service: 12/10/16 1135 PROCEDURE: US DUPLEX DOPPLER UNILATERAL LEG ARTERIES, RIGHT INDICATIONS: RIGHT GROIN HEMATOMA TECHNIQUE: Color and pulse Doppler interrogation was performed of the right lower extremity arterial system, with image documentation. COMPARISON: Merged With [facility], US, US ARTERY LEG DPLX UNI RT, 12/08/2016, 19:35. Merged With [facility], US, US ARTERY LEG DPLX UNI RT, 12/07/2016, 14: 41. Merged With [facility], US, US ARTERY LEG DPLX UNI RT, 12/09/2016, 11:35. FINDINGS: There is an irregular mass in the right groin with no internal vascularity compatible with a hematoma. The main component measures 5.4 x 2.7 x 2.7 cm, similar in size compared to 12/09/2016. Medial to the main component, there is a 3.9 x 2.6 x 2.0 cm hematoma. Small venous vessels are seen adjacent to the right groin hematoma. Previously seen pseudoaneurysm "neck" is no longer visualized. IMPRESSION: Hematomas in the right groin. The pseudoaneurysm "neck" is no longer visualized. Date of Service: 12/09/16 0847 PROCEDURE: US DUPLEX DOPPLER UNILATERAL LEG ARTERIES, RIGHT INDICATIONS: ASSESS PROGRESS OF PSEUDOANEURYSM TECHNIQUE: Color and pulse Doppler interrogation was performed of the right lower extremity arterial system, with image documentation. COMPARISON: Merged With [facility], , US ARTERY LEG DPLX UNI RT, 12/08/2016, 19:35. FINDINGS: The right groin, there is a 5.0 x 3.4 x 2.7 cm hematoma from prior pseudoaneurysm. No definite internal flow seen. There is a residual patent neck measuring 1.5 mm (previously 5.0 mm). Superficial femoral artery appears patent IMPRESSION: Right groin hematoma as above. Decreased size of (patent) neck of the prior pseudoaneurysm as detailed above. Date of Service: 12/08/16 1842 PROCEDURE: US DUPLEX DOPPLER UNILATERAL LEG ARTERIES, RIGHT INDICATIONS: POSSIBLE PSEUDOANEURSM RIGHT GROIN TECHNIQUE: Color and pulse Doppler interrogation was performed of the right lower extremity arterial system, with image documentation. COMPARISON: Merged With [facility], , US ARTERY LEG DPLX UNI RT, 12/07/2016, 14:41. FINDINGS: There is a 4.7 x 3.8 cm pseudoaneurysm in the right groin with an approximately 5 mm neck. The underlying arterial structures are secured by edema. There is a 5.5 x 2.0 x 3.8 cm associated soft tissue hematoma. IMPRESSION: Right groin pseudoaneurysm. Associated hematoma. Arterial structures themselves are obscured by edema and cannot be evaluated. Date of Service: 12/07/16 1115 PROCEDURE: US DUPLEX DOPPLER UNILATERAL LEG ARTERIES, RIGHT INDICATIONS: swelling TECHNIQUE: Color and pulse Doppler interrogation was performed of the right lower extremity arterial system, with image documentation. COMPARISON: None. FINDINGS: Limited sonography of the right groin demonstrates a avascular, cystic structure within the right groin measuring 8.2 x 5.7 cm. Normal appearance of the right common femoral artery and vein as is demonstrated with spectral and color-flow Doppler. IMPRESSION: 1. No actively bleeding right groin pseudoaneurysm identified. 2. Roughly 8.2 cm avascular rounded fluid collection within the right groin which could be related to an evolving hematoma the findings are nonspecific. If indicated repeat ultrasound could be performed to assess for resolution. Assessment & Plan Problems: (1) Pseudoaneurysm Plan: Stable. No increase size of hematoma. Patient may go home this afternoon. Patient already has an appt with Dr. Iverson on 12/21 Patient needs work release letter for 2 weeks. Discharge on current heart medications. Give at least 2 months on Plavix 75 mg once a day. I will order an ultrasound the day before he sees Dr. Iverson to reassess pseudoaneurysm which will be done at [facility]. No heavy lifting for 2 weeks > 20 lbs. No driving until he sees Dr. Iverson. Status: Acute ICD Code: I72.9 (2) STEMI (ST elevation myocardial infarction) Status: Acute ICD Code: I21.3 Pain Evaluation: Adequate Pain Control GI Prophylaxis: Not indicated VTE Prophylaxis: Other (as per cardiology) Resuscitation Status: CPR: Attempt Resuscitation Time spent 15 minutes Jovon Daley MD December 12, 2016 15:01
--- NOTE | 2016-12-12 15:44 | PCM.DC.MED ---
Discharge Summary Date of Service December 12, 2016 Dates of Hospitalization Date of Hospital Admission December 02, 2016 at 16:54 Date of Discharge: December 06, 2016 Providers: Admitting Physician: Srinivasan Weber MD Primary Care Physician: Tom Arnold Pa-C Attending Physician: Srinivasan Weber MD Diagnosis at Time of Discharge Diagnosis at Time of Discharge STEMI, CAD, paroxysmal atrial fibrillation, chronic systolic heart failure, hypertension, hyperlipidemia. Consultations Cardiology, Dr. Daley/Paliwvero Procedures XRay, CTs & MRIs CXR IMPRESSION: No acute cardiopulmonary disease. Cardiac Echo Impression Interpretation Summary Left ventricular wall thickness is at the upper limits of normal. There is inferior wall akinesis. There is posterolateral wall hypokinesis. Left ventricular ejection fraction is estimated to be 45 +/- 5%. The aortic valve is mildly calcified. The calculated aortic valve area is 1.3 cm2. The right ventricular systolic pressure is estimated at 30 mmHg assuming a right atrial pressure of 3 mm Hg. Compared to the prior echo study, there has been no change in the severity of aortic stenosis. Brief History As per HPI by hospitalist medical social consultant, "51yoM with past medical history of HTN, HLD, CAD s/p stent placement admitted with STEMI s/p cath. Request by Dr. Weber of cardiology for evaluation and management of atrial fibrillation with RVR. Patient was at home prior to admission when he began having 7/10 chest discomfort characterized as heaviness that was diffuse radiating throughout the chest associated with diaphoresis and dyspnea. EMS was called and patient transported to [facility] ED where blood bank laboratory technologist activation was completed. EKG with inferior ST elevation. In blood bank laboratory technologist prior stent was found to have in stent thrombosis of the RCA. This was revascularized and patient was transferred to the CCU for close monitoring. The evening of 12/03 at approximately 7pm Mr. Bray went into atrial fibrillation with RVR. He has been recently taken off a nitro gtt which was managing HTN. 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 The hospitalist service is consulted for assistance in managing the patient's anticoagulation, subsequently complicated for inguinal hematoma. #. Recurrent right groin hematoma. New. Hospital course as follows: - The patient had his warfarin held and anticoagulation reversed with vitamin K and FFP. - A pressure devices applied to the groin was ineffective and Femostop subsequently utilized with apparently greater success. - Cardiology recommended no anticoagulation at this juncture due to hematoma, and in stead suggest utilization of dual antiplatelet agents only. - Repeated inguinal imaging with ultrasound demonstrates improving thrombus in spite of some times subjective increase in mass described by patient - During remaining hospitalization patient was continually monitored, based on repeated US imaging thrombus was stable and slowly decreasing in size at time of discharge. - He was able to ambulate without exacerbation of this condition. Further recommendation as per extract operator as noted by Dr Daley on day of discharge, "Patient may go home this afternoon. Patient already has an appt with Dr. Iverson on 12/21 Patient needs work release letter for 2 weeks. Discharge on current heart medications. Give at least 2 months on Plavix 75 mg once a day. I will order an ultrasound the day before he sees Dr. Iverson to reassess pseudoaneurysm which will be done at [facility]. No heavy lifting for 2 weeks > 20 lbs. No driving until he sees Dr. Iverson." #. Atrial fibrillation with RVR, improved, not POA -Patient when into afib with RVR following cath but spontaneously converted to sinus with metoprolol -Plan to continue metoprolol as per cardiology -[id number] of 4. -The plan is to stop warfarin as outlined above, may be reconsidered in 1 week during FU with extract operator Dr. Iverson. #. STEMI, acute, POA and improved. He continues to remain stable. -s/p cath with in-stent occlusion found -patient was noted to have mild ST elevation by the cardiology team, which have resolved. -No change in his current medical management. Continue Plavix and aspirin. #. Essential hypertension, chronic, POA and stable. Discussed this with Dr. Weber cardiology today. His pressures have been a little low with the addition of lisinopril and we therefore decreased his metoprolol from 50 down to 25 mg with good effect. HLD, chronic, POA - continue statin Exam Vital Signs (Last) Date Time Temp Pulse Resp B/P Pulse Ox O2 Delivery O2 Flow Rate FiO2 12/12/16 12:58 36.7 71 18 97/65 100 Room Air Exam General: Alert, Oriented X3, Cooperative, No Acute Distress Mouth: Mucous Membrane Moist/[place] Chest & Lungs: Chest Wall Normal Cardiovascular: Regular Rate/Rhythm Abdomen: Non-tender, Non-distended, Inguinal region on right side still demonstrating extensive bruising in addition to large inguinal mass on right side is firm but not hard approximately same size as previous examination. No active bleeding noted clear occlusive dressings covering set of previous femoral access. Neurological: Grossly Neurologically Intact Test 12/02/16 14:25 12/03/16 03:15 12/11/16 03:19 12/12/16 03:32 Total Bilirubin 0.5mg/dL (0.0-1.2) Aspartate Amino Transf (AST/SGOT) 27U/L (0-50) Alanine Aminotransferase (ALT/SGPT) 25U/L (0-44) Alkaline Phosphatase 102U/L (25-150) Total Protein 7.5g/dL (6.4-8.4) Albumin 4.4g/dL (3.4-5.0) Magnesium Level 1.9mg/dL (1.6-2.6) Total Creatine Kinase 2038U/L (21-232) Creatine Kinase MB 300.0ng/mL (0.0-10.4) Creatine Kinase MB % 14.7% (0.0-5.0) Troponin T 12.54ug/L (0.0-0.011) Sodium Level 138mEq/L (134-144) Potassium Level 4.4mEq/L (3.5-5.2) Chloride Level 102mEq/L (97-108) Carbon Dioxide Level 25mmol/L (18-29) Blood Urea Nitrogen 15mg/dL (6-24) Creatinine 0.72mg/dL (0.76-1.27) Estimat Glomerular Filtration Rate 123mL/min (>59) Glucose Level 114mg/dL (60-99) Calcium Level 9.0mg/dL (8.5-10.1) Triglycerides Level 59mg/dL (0-149) Cholesterol Level 120mg/dL (100-199) LDL Cholesterol, Calculated 75.200mg/dL (0-99) VLDL Cholesterol 11.800mg/dL HDL Cholesterol 33mg/dL (>39) Cholesterol/HDL Ratio 3.64 (0.0-4.4) White Blood Count 10.4th/mm3 (3.8-10.1) Red Blood Count 3.63mil/mm3 (4.40-5.80) Hemoglobin 10.4g/dL (13.8-17.2) Hematocrit 31.4% (41.0-50.0) Mean Corpuscular Volume 86.5fL (81-100) Mean Corpuscular Hemoglobin 28.7pg (27.0-35.0) Mean Corpuscular Hemoglobin Concent 33.1% (32.0-37.0) Red Cell Distribution Width 13.5% (12.3-15.4) Platelet Count 254bil/L (150-400) Neutrophils (%) (Auto) 65.1% (40-74) Lymphocytes (%) (Auto) 21.9% (14-46) Monocytes (%) (Auto) 9.3% (4-12) Eosinophils (%) (Auto) 3.1% (0-5) Basophils (%) (Auto) 0.3% (0-3) Prothrombin Time 10.7sec (8.1-12.5) Prothromb Time International Ratio 1.00ratio Discharge Medications Discharge Medications Aspirin Chew (Aspirin Chew) 81 Mg Chew 81 MG PO DAILY (Reported) Atorvastatin Calcium (Atorvastatin Calcium) 80 Mg Tablet 80 MG PO DAILY ( Reported) Docusate Sodium (Colace) 100 Mg Capsule 300 MG PO DAILY (Reported) Enoxaparin (Lovenox) 80 Mg/0.8 Ml Syringe 80 MG SUBQ Q12 Prescribed by: SHAD SOL DO Ferrous Gluconate (Ferrous Gluconate) 324 Mg Tab 324 MG PO BID (Reported) Hydrocortisone (Cortizone 10) 28 Gm Gel..gram. 1 APPLIC EXT DAILY (Reported) apply daily to face for eczema Lansoprazole (Lansoprazole) 30 Mg Capsule.dr 15 MG PO DAILY (Reported) Lisinopril (Lisinopril) 5 Mg Tablet 5 MG PO BID (Reported) Metoprolol Succinate ER (Metoprolol Succinate ER) 50 Mg Tab.er.24h 50 MG PO DAILY (Reported) Warfarin Sodium (Coumadin) 5 Mg Tablet 5 MG PO ONCE@17 Prescribed by: SHAD SOL DO Followup Plan Disposition: Appt with Dr. Iverson on 12/21 Work release for 2 weeks provided US to be obtained prior to FU visit at [facility] No heavy lifting for 2 weeks > 20 lbs. No driving until he sees Dr. Iverson." Discharge Diet: Heart Healthy Discharge Activity: Other Follow-up Provider: Marjan Iverson MD Follow-up with PCP in: 2 weeks Time spent 55 minutes copies to: TOM ARNOLD PA-C, Benjamin P DO December 12, 2016 15:44
[2016-12-12] MEDS ORDERED: LISI-571 PO (16:27)
[2016-12-12] MEDS ORDERED: CLOP75TA28 PO (16:27)
[2016-12-12] MEDS ORDERED: METO25TA99 PO (16:27)
--- NOTE | 2016-12-12 16:28 | PCM.DIMED ---
Discharge Instructions Date of Service December 12, 2016 Dates of Hospitalization December 02, 2016 at 16:54 Discharge Diagnosis Discharge Diagnosis STEMI, CAD, paroxysmal atrial fibrillation, chronic systolic heart failure, hypertension, hyperlipidemia. Diet Heart Healthy Activity Other Call your provider Shortness of breath, Bleeding, Chest pain Patient Instructions Appt with Dr. Iverson on 12/21 Work release for 2 weeks provided US to be obtained prior to FU visit at [facility] No heavy lifting for 2 weeks > 20 lbs. No driving until visit with Dr. Iverson." Follow-up Provider: Marjan Iverson MD Follow-up with PCP in: 2 weeks Ho Kessler DO December 12, 2016 16:28
--- NOTE | 2016-12-12 18:18 | NUR ---
Discharge Pt left with brother at 1800. All discharge instructions gone over and understood including changes in medications. New prescriptions sent with along with work note. All questions answered, IV and tele removed. All belongings taken with. Clear instructions gone over about care for right groin site and swelling. Pt left A&Ox3 and vitals stable.
[2016-12-12 22:26] VITALS: BP 94/52; PULSE 66; RESP 16; O2SAT 99
== END 2016-12-12 17:40 | disposition home or self-care (01) | DRG 174 ==
LOC: SED 14:15 → SPI 14:30 → CCU 16:54 → PCC 12-03 15:42
PROVIDERS: ADMIT Internal Medicine Cardiovascular Disease; ATTEND Internal Medicine Cardiovascular Disease
PROC: 027034Z Dilation of Coronary Artery, One Artery with Drug-eluting Intraluminal Device, Percutaneous Approach (ICD-10-PCS; principal; 2016-12-02)
PROC: 02C03ZZ Extirpation of Matter from Coronary Artery, One Artery, Percutaneous Approach (ICD-10-PCS; 2016-12-02)
PROC: 4A023N7 Measurement of Cardiac Sampling and Pressure, Left Heart, Percutaneous Approach (ICD-10-PCS; 2016-12-02)
PROC: B2111ZZ Fluoroscopy of Multiple Coronary Arteries using Low Osmolar Contrast (ICD-10-PCS; 2016-12-02)
PROC: 30233K1 Transfusion of Nonautologous Frozen Plasma into Peripheral Vein, Percutaneous Approach (ICD-10-PCS; 2016-12-09)
DX: I21.11 ST elevation (STEMI) myocardial infarction involving right coronary artery (principal); I47.2 Ventricular tachycardia; T82.867A Thrombosis due to cardiac prosthetic devices, implants and grafts, initial encounter; I50.32 Chronic diastolic (congestive) heart failure; I69.354 Hemiplegia and hemiparesis following cerebral infarction affecting left non-dominant side; I97.630 Postprocedural hematoma of a circulatory system organ or structure following a cardiac catheterization; I25.10 Atherosclerotic heart disease of native coronary artery without angina pectoris; E78.5 Hyperlipidemia, unspecified; I10 Essential (primary) hypertension; Z87.891 Personal history of nicotine dependence; Z95.5 Presence of coronary angioplasty implant and graft; I25.5 Ischemic cardiomyopathy; I48.0 Paroxysmal atrial fibrillation; Y84.0 Cardiac catheterization as the cause of abnormal reaction of the patient, or of later complication, without mention of misadventure at the time of the procedure

== ENCOUNTER 2016-12-12 23:36 | Emergency (ER) | payer OTHER ==
[~2016-12-12] VITALS: Ht 165.1 cm; Wt 81.8 kg
[~2016-12-12 23:36] MED LIST changes: -0.9% Sodium Chloride 1,000 ML ONE; -0.9% Sodium Chloride 250 ML ONE; +CLOP75TA28 PO; +HYDR28GE EXT; -Heparin 1,000 Unit/mL 10 mL Inj ONE; -Heparin 1,000 Units/500 mL NS Premix IV ONE; -Heparin 10,000 Unit/1,000 mL NS Premix IV ONE; -Heparin 5,000 Units/500 mL NS Premix IV ONE; +LANS30CA PO; +LOV80 SUBQ; +METO25TA99 PO; -NitroPRUSSIDE 25,000 mCg/mL 2 mL Inj IV ONE; -Nitroglycerin 50,000 mcg/250 mL D5W Premix IV ONE; -OMEP20CA11 PO; +WARF5TAB PO
[2016-12-13 00:09] VITALS: BP 142/63; PULSE 100; RESP 15; O2SAT 97
--- NOTE | 2016-12-13 00:27 | ED.REPORT ---
HPI-Extremity Problem Lower Date of Service December 13, 2016 ED Provider: Andrews Harris DO Pt is a 51 year old male with a recent history of a heart attack who presents to the ED with concerns for swelling and increased pain in his right groin. He believe that this is due to the cardiac catheterization that he received. The area has been becoming increasingly swollen and tender since it s onset. He denies any chest pain, shortness of breath, cough, nausea, vomiting or any other complaints at this time. Nursing Notes Stated Complaint: GROIN SWELLING POST SURGERY Chief Complaint: General Complaint Nursing Notes Reviewed: Yes Allergies: Coded Allergies: crab (Verified Adverse Reaction, Intermediate, N/V, 12/02/16) cucumber (Verified Adverse Reaction, Intermediate, N/V, 12/02/16) Scheduled Aspirin Chew (Aspirin Chew) 81 Mg Chew 81 MG PO DAILY Atorvastatin Calcium (Atorvastatin Calcium) 80 Mg Tablet 80 MG PO DAILY Clopidogrel (Clopidogrel) 75 Mg Tablet 75 MG PO DAILY Docusate Sodium (Colace) 100 Mg Capsule 300 MG PO DAILY Ferrous Gluconate (Ferrous Gluconate) 324 Mg Tab 324 MG PO BID Hydrocortisone (Cortizone 10) 28 Gm Gel..gram. 1 APPLIC EXT DAILY apply daily to face for eczema Lansoprazole (Lansoprazole) 30 Mg Capsule.dr 15 MG PO DAILY Lisinopril (Lisinopril) 5 Mg Tablet 2.5 MG PO DAILY Metoprolol Succinate ER (Metoprolol Succinate ER) 25 Mg Tab.er.24h 25 MG PO DAILY General Time Seen by MD: 00:24 Chief Complaint Other (Groin swelling) Hx Obtained From: Patient Arrived By: Ambulance Onset Occurred: Yesterday Symptom Duration: Since onset Quality: Painful Severity: Current: Mild Severity: Maximum: Moderate Similar Sx Previous: Yes Past Medical History Past Medical History Reports: Coronary artery disease, Stroke Past Surgical History Denies Smoking History Former Smoker Social History Current nonsmoker Ambulatory Status Independent Review of Systems Constitutional: Denies: Chills, Fever, Malaise, Weakness - generalized Musculoskeletal: Denies: Back pain, Extremity pain, Neck pain Skin: Reports Bruising, Denies Diaphoresis, Denies Rash Neurologic: Denies: Change LOC, Dizziness, Headache, Numbness, Syncope, Weakness Complete sys rev & neg: except as marked. Physical Exam Initial Vital Signs Vital Signs (First) Date Time Temp Pulse Resp B/P Pulse Ox O2 Delivery O2 Flow Rate FiO2 12/13/16 00:09 36.8 100 15 142/63 97 Room Air Initial VS: Reviewed General/Constitutional: Well-developed, Well-nourished Head / Eyes: Atraumatic, Normocephalic, PERRL ENT: Mucous membranes moist, Conjunctiva normal, No scleral icterus Neck: Supple, Non-tender, Full range of motion Respiratory: Breath sounds normal, Clear to auscultation, No respiratory distress Cardiovascular: Regular rate & rhythm, Heart sounds normal, Intact distal pulses Abdomen / GI: Soft, Non-tender, No guarding, No rebound, No distention Skin: Warm, Dry, No cyanosis Neurologic: Alert, Oriented, Nonfocal Psychiatric: Mood/affect normal, Behavior normal, Normal thought content Lower Extremity / Pelvis / MS: Atraumatic Large amount of ecchymosis about the right groin Ankle / Foot: Atraumatic, Inspection NL, Full range of motion, No swelling, Non -tender, No deformity Interpretation & Diagnostics Lab Results Interpretation Result Diagram: 12/13/162 12/13/162 Test 12/13/16 00:52 White Blood Count 10.9th/mm3 (3.8-10.1) Red Blood Count 3.54mil/mm3 (4.40-5.80) Hemoglobin 10.0g/dL (13.8-17.2) Hematocrit 30.3% (41.0-50.0) Mean Corpuscular Volume 86fL (81-100) Mean Corpuscular Hemoglobin 28.2pg (27.0-35.0) Mean Corpuscular Hemoglobin Concent 33.0% (32.0-37.0) Red Cell Distribution Width 13.4% (12.3-15.4) Platelet Count 277bil/L (150-400) Neutrophils (%) (Auto) 80.1% (40-74) Lymphocytes (%) (Auto) 16.3% (14-46) Monocytes (%) (Auto) 10.4% (4-12) Eosinophils (%) (Auto) 2% (0-5) Basophils (%) (Auto) 0.2% (0-3) Prothrombin Time 11.0sec (8.1-12.5) Prothromb Time International Ratio 1.03ratio Sodium Level 135mEq/L (134-144) Potassium Level 4.2mEq/L (3.5-5.2) Chloride Level 98mEq/L (97-108) Carbon Dioxide Level 23mmol/L (18-29) Blood Urea Nitrogen 15mg/dL (6-24) Creatinine 0.77mg/dL (0.76-1.27) Estimat Glomerular Filtration Rate 114mL/min (>59) Glucose Level 146mg/dL (60-99) Calcium Level 9.2mg/dL (8.5-10.1) Total Bilirubin 0.6mg/dL (0.0-1.2) Aspartate Amino Transf (AST/SGOT) 19U/L (0-50) Alanine Aminotransferase (ALT/SGPT) 33U/L (0-44) Alkaline Phosphatase 86U/L (25-150) Total Protein 6.6g/dL (6.4-8.4) Albumin 3.6g/dL (3.4-5.0) Hold Garsia Top Tube Received (Received) Re-Eval/Medical Decision Med Decision/Clinical Course The ultrasound does not show evidence of a pseudo-abscess formation or arterial flow outside of the femoral artery. The hematoma seems to be spreading through the fascial and muscular planes as to be expected. There is good flow above and below the hematoma. H&H is stable. I consulted with Dr. Daley the building maintenance supervisor or discharge Mr. Bray home today. He recommends no further intervention, no further diagnostics and to treat him symptomatically and have outpatient follow-up. Mr. Bray has had good pain relief with Percocets will be discharged home with a Percocet take home pack and have close outpatient follow-up. He had bounding pedal pulses and no clinical evidence of DVT. Source of Hx: Old records Re-Evaluation/Progress : Time of Eval: 01:32 Re-Evaluation/Progress Note: Pt is rechecked and informed of his lab results and the plan to discharge him at this time. He understands and agrees, all questions are addressed. Consultation : Referral / Consult Name: Jovon Daley MD Call Returned at: 01:16 Job Cost Estimator: Agrees with eval, Agrees with plan Counseled Regarding: Diagnosis, Need for follow-up, When/why to return to ED Discharge & Departure Impression: Primary Impression: Postoperative hematoma Disposition: Home Discharge Condition All VS Reviewed: Yes Condition: Stable Patient Instructions: Hematoma (ED) Additional Instructions: Take 1-2 Percocet every 6 hours to control your pain. NOTE: this is a narcotic pain medication and may cause drowsiness. Do not drink alcohol drive, or consume any acetaminophen while on this medication. Continue with your post- catheterization instructions that you were previously given. Follow up with your building maintenance supervisor. If the area grows or become more painful, do not hesitate to come back into the emergency room. Referrals: TOM ARNOLD PA-C (PCP) Scribe Attestation Portions of this note were transcribed by Areli Abreu. I, Dr. Harris personally performed the history, physical exam and medical decision-making; I reviewed and confirmed the accuracy of the information in the transcribed note. Signed by: Marc Luna, 12/13/2016 [Time]. copies to: TOM ARNOLD PA-C, Todd P DO December 13, 2016 00:27 YAYA ABREU December 13, 2016 00:33
[2016-12-13] MEDS ORDERED: oxyCODONE-Acetamin 5-325 mg Tablet PO ONE (01:00)
[2016-12-13 01:04] LABS: Mean Corpuscular Hemoglobin 28.2 pg (27.0-35.0); Mean Corpuscular Volume 86 fL (81-100)
[2016-12-13 01:05] LABS: BASOPHILS % (AUTO) 0.2 % (0-3); EOSINOPHILS % (AUTO) 2 % (0-5); MONOCYTES % (AUTO) 10.4 % (4-12); NEUTROPHILS % (AUTO) 80.1 % (40-74); Platelet Count 277 bil/L (150-400)
[2016-12-13] MEDS ORDERED: _oxyCODONE/APAP 5-325 mg Tablet PO PRN (01:05)
[2016-12-13 01:18] LABS: INR 1.03 ratio
[2016-12-13 01:28] VITALS: BP 137/60; PULSE 100; RESP 15; O2SAT 98
--- NOTE | 2016-12-13 08:33 | DRSVH ---
PROCEDURE: US EXTREMITY SONOGRAM LIMITED ([id number]) INDICATIONS: post cath pain and hematoma TECHNIQUE: Real-time scanning was performed of the right groin, with image documentation. COMPARISON: [facility], , US ARTERY LEG DPLX UNI RT, 12/10/2016, 12:00. [facility], , US EXTREMITY LTD, 12/11/2016, 11:29. FINDINGS: There is a 5.5 x 2.8 x 3.4 cm complex fluid collection in the right groin, which demonstrat es no internal vascularity, consistent with a hematoma. A vessel is noted deep to the collection. The re is no definitive connection between the complex collection and the adjacent vessel. The findings a re compatible with a thrombosed pseudoaneurysm/hematoma. IMPRESSION: Thrombosed pseudoaneurysm/hematoma in the right groin. There is no definitive pseudoaneur ysm neck visualized on the current scan. No significant discrepancy with the overnight associate radiology preliminary report. Dictated by: Mady Waldrop M.D. on 12/13/2016 at 8:25 Approved by: Mady Waldrop M.D. on 12/13/2016 at 8:32
== END 2016-12-13 01:29 | disposition home or self-care (01) ==
LOC: EDBD 23:36 → EDUNIT# 23:36 → SED 23:36
DX: I97.630 Postprocedural hematoma of a circulatory system organ or structure following a cardiac catheterization (principal); I25.10 Atherosclerotic heart disease of native coronary artery without angina pectoris; Z86.73 Personal history of transient ischemic attack (TIA), and cerebral infarction without residual deficits; Z79.891 Long term (current) use of opiate analgesic; Z79.82 Long term (current) use of aspirin; Z79.899 Other long term (current) drug therapy; Z87.891 Personal history of nicotine dependence; Z91.013 Allergy to seafood; Z91.018 Allergy to other foods